=== PATIENT | female | born 1980 | race Hispanic/Latino ===

== ENCOUNTER 2016-09-27 00:39 | Inpatient (IN) | payer OTHER ==
[2016-09-27 02:50] LABS: Anion Gap 19 mmol/L; Blood Urea Nitrogen 15 mg/dL (7-17); Calcium 8.9 mg/dL (8.4-10.2); Carbon Dioxide 26 mmol/L (22-30); Chloride 94.7 mmol/L (98-107); Glucose 141 mg/dL (65-100); Potassium 4.1 mmol/L (3.6-5.0); Sodium 136 mmol/L (137-145)
[2016-09-27 03:09] LABS: Basophils % (Auto) 0.4 % (0.0-1.8); Eosinophils % (Auto) 1.4 % (0.0-4.3); Hematocrit 29.2 % (30.3-42.9); Mean Corpuscular HGB Conc 31 % (30-34); Mean Corpuscular Volume 79 fl (79-97); Platelet Count 206 K/mm3 (140-440); Red Blood Count 3.71 M/mm3 (3.65-5.03); White Blood Count 9.8 K/mm3 (4.5-11.0)
[2016-09-27 03:15] LABS: Mean Corpuscular Hemoglobin 24 pg (28-32); Red Cell Distribution Width 22.1 % (13.2-15.2)
[2016-09-27 04:50] LABS: INR 1.15 (0.87-1.13)
[2016-09-27 04:51] LABS: Partial Thromboplastin Time 28.7 Sec. (24.2-36.6)
--- NOTE | 2016-09-27 07:46 | XRay Report ---
AP CHEST: HISTORY: Shortness of breath No comparison. Mild cardiomegaly and pulmonary venous congestion are identified. Trace pleural effusions could be present. Otherwise, the lungs are clear. No pneumonia or pneumothorax is appreciated. The bony structures are unremarkable. IMPRESSION: Correlate for mild CHF.
--- NOTE | 2016-09-27 08:14 | Emergency Department Report ---
ED General Adult HPI - General Chief complaint: Dyspnea/Respdistress Stated complaint: RT LEG PAIN Time Seen by Provider: 09/27/16 08:12 Source: patient Mode of arrival: Wheelchair Limitations: No Limitations - History of Present Illness Initial comments: Patient states that she has run out of her morphine which she is on maintenance for for chronic pain. She doesn't have any explanation for this nor has she contacted her primary care physician. She states that her pain management is per a primary care physician. She complains of nausea vomiting and diarrhea. She was here on 09/14/2016 with similar complaints. She did not follow-up with the GI doctor. She's had no recent fever or chills. She has not vomited since I've been here in the emergency department nor have I noted any significant diarrhea. Patient did state that she went to the bathroom once this a.m. She had a CT on 09/14/2016 which was consistent with gastroenteritis. I do not believe she had any C. difficile study at that time. -: Gradual, week(s) Location: abdomen Quality: other (cramping) Consistency: intermittent Improves with: none Worsens with: none Associated Symptoms: denies other symptoms Treatments Prior to Arrival: none - Related Data Allergies Allergy/AdvReac Type Severity Reaction Status Date / Time milk Allergy Diarrhea Verified 09/27/16 02:08 ED Review of Systems ROS: Stated complaint: RT LEG PAIN Other details as noted in HPI Constitutional: denies: chills, fever Eyes: denies: eye pain, eye discharge, vision change ENT: denies: ear pain, throat pain Respiratory: denies: cough, shortness of breath, wheezing Cardiovascular: denies: chest pain, palpitations Endocrine: no symptoms reported Gastrointestinal: abdominal pain, nausea, vomiting, diarrhea Genitourinary: denies: urgency, dysuria, discharge Musculoskeletal: denies: back pain, joint swelling, arthralgia Skin: denies: rash, lesions Neurological: denies: headache, weakness, paresthesias Psychiatric: denies: anxiety, depression Hematological/Lymphatic: denies: easy bleeding, easy bruising ED Past Medical Hx - Past Medical History Previous Medical History?: Yes Additional medical history: hypothyroidism - Surgical History Past Surgical History?: Yes Additional Surgical History: x2 - Social History Smoking Status: Never Smoker Substance Use Type: None ED Physical Exam - General Limitations: No Limitations General appearance: alert, in no apparent distress - Head Head exam: Present: atraumatic, normocephalic - Eye Eye exam: Present: normal appearance, PERRL, EOMI. Absent: scleral icterus - ENT ENT exam: Present: mucous membranes moist - Neck Neck exam: Present: normal inspection - Respiratory Respiratory exam: Present: normal lung sounds bilaterally. Absent: respiratory distress - Cardiovascular Cardiovascular Exam: Present: regular rate, normal rhythm. Absent: systolic murmur, diastolic murmur, rubs, gallop - GI/Abdominal GI/Abdominal exam: Present: soft, normal bowel sounds. Absent: distended, tenderness, guarding, rebound, rigid - Extremities Exam Extremities exam: Present: normal inspection - Back Exam Back exam: Present: normal inspection - Neurological Exam Neurological exam: Present: alert, oriented X3, CN II-XII intact. Absent: motor sensory deficit - Psychiatric Psychiatric exam: Present: normal affect, normal mood - Skin Skin exam: Present: warm, dry, intact, normal color. Absent: rash ED Course Vital Signs 09/27/16 09/27/16 09/27/16 01:58 02:29 02:30 Temperature 97.6 F Pulse Rate 108 H Respiratory 22 37 H 25 H Rate Blood Pressure 136/88 137/75 137/75 O2 Sat by Pulse 90 95 95 Oximetry 09/27/16 09/27/16 09/27/16 02:40 02:50 03:00 Temperature Pulse Rate 99 H 105 H 100 H Respiratory 21 16 19 Rate Blood Pressure 137/75 137/75 O2 Sat by Pulse 98 94 98 Oximetry 09/27/16 09/27/16 09/27/16 03:10 03:20 03:30 Temperature Pulse Rate 99 H 96 H 100 H Respiratory 18 20 12 Rate Blood Pressure 137/75 137/75 137/75 O2 Sat by Pulse 97 96 96 Oximetry 09/27/16 09/27/16 09/27/16 03:40 03:50 04:00 Temperature Pulse Rate 100 H 101 H 100 H Respiratory 20 23 19 Rate Blood Pressure 137/75 137/75 137/75 O2 Sat by Pulse 98 95 98 Oximetry 09/27/16 09/27/16 09/27/16 04:10 04:20 04:30 Temperature Pulse Rate 104 H 102 H 98 H Respiratory 16 13 21 Rate Blood Pressure 137/75 137/75 137/75 O2 Sat by Pulse 91 94 95 Oximetry 09/27/16 09/27/16 09/27/16 04:40 04:50 05:00 Temperature Pulse Rate 103 H Respiratory 18 Rate Blood Pressure 137/75 137/75 137/75 O2 Sat by Pulse 97 91 95 Oximetry 09/27/16 09/27/16 09/27/16 05:10 05:20 05:30 Temperature Pulse Rate Respiratory Rate Blood Pressure 137/75 137/75 137/75 O2 Sat by Pulse 97 96 94 Oximetry 09/27/16 09/27/16 09/27/16 05:40 05:50 06:00 Temperature Pulse Rate Respiratory Rate Blood Pressure 137/75 137/75 137/75 O2 Sat by Pulse 92 94 88 Oximetry 09/27/16 09/27/16 09/27/16 06:10 06:20 06:30 Temperature Pulse Rate Respiratory Rate Blood Pressure 137/75 137/75 137/75 O2 Sat by Pulse 94 93 96 Oximetry 09/27/16 09/27/16 09/27/16 06:40 06:50 07:00 Temperature Pulse Rate Respiratory Rate Blood Pressure 137/75 137/75 137/75 O2 Sat by Pulse 96 88 83 L Oximetry 09/27/16 09/27/16 09/27/16 07:10 07:20 07:30 Temperature Pulse Rate Respiratory Rate Blood Pressure 137/75 137/75 137/75 O2 Sat by Pulse 87 86 85 Oximetry - Reevaluation(s) Reevaluation #1: I have explained to the patient that we cannot renew her chronic morphine maintenance. That is the [place] of her primary care physician. I can't give her some Percocet. I will empirically start her on Flagyl and also prescribed Zofran. If she can produce a stool specimen we will send it for study. Otherwise follow-up with GI physician and her primary care is indicated. 09/27/16 08:42 ED Medical Decision Making - Lab Data Result diagrams: 09/27/16 02:18 09/27/16 02:18 Laboratory Results - last 24 hr 09/27/16 09/27/16 09/27/16 02:18 02:18 04:07 WBC 9.8 RBC 3.71 Hgb 9.0 L Hct 29.2 L MCV 79 MCH 24 L MCHC 31 RDW 22.1 H Plt Count 206 Lymph % (Auto) 15.3 [place] % (Auto) 5.9 Eos % (Auto) 1.4 Baso % (Auto) 0.4 Lymph # 1.5 [place] # 0.6 Eos # 0.1 Baso # 0.0 Seg Neutrophils % 77.0 H Seg Neutrophils # 7.6 PT 15.3 H INR 1.15 H APTT 28.7 Sodium 136 L Potassium 4.1 Chloride 94.7 L Carbon Dioxide 26 Anion Gap 19 BUN 15 Creatinine 1.0 Estimated GFR > 60 BUN/Creatinine Ratio 15.00 Glucose 141 H Calcium 8.9 Troponin T < 0.010 TSH Free T4 HCG, Qual 09/27/16 09/27/16 04:07 04:07 WBC RBC Hgb Hct MCV MCH MCHC RDW Plt Count Lymph % (Auto) [place] % (Auto) Eos % (Auto) Baso % (Auto) Lymph # [place] # Eos # Baso # Seg Neutrophils % Seg Neutrophils # PT INR APTT Sodium Potassium Chloride Carbon Dioxide Anion Gap BUN Creatinine Estimated GFR BUN/Creatinine Ratio Glucose Calcium Troponin T TSH 25.680 H Free T4 0.80 HCG, Qual Negative Critical care attestation.: If time is entered above; I have spent that time in minutes in the direct care of this critically ill patient, excluding procedure time. ED Disposition Does the pt Need Aspirin: No Condition: Stable Additional Instructions: Your chronic morphine must be prescribed by her primary care physician. Seen him for that. I Prescribed some Percocet and Zofran at this point. I am going to recommend that he take Flagyl for your diarrhea. If you can't give us a stool sample we will send appropriate studies. Follow-up with a GI specialist. See referral. Time of Disposition: 08:45
[2016-09-27] MEDS ORDERED: MORPHINE IV ONE (08:17)
[2016-09-27] MEDS ORDERED: HEPARIN 10,000 UNITS/10 ML IV ONE (08:28)
--- NOTE | 2016-09-27 09:18 | Emergency Department Report ---
ED General Adult HPI - General Chief complaint: Dyspnea/Respdistress Stated complaint: RT LEG PAIN Time Seen by Provider: 09/27/16 08:12 Source: patient Mode of arrival: Wheelchair Limitations: No Limitations - History of Present Illness Initial comments: Patient states that she was previously on anticoagulation for 6 months for a DVT of her right leg. She states that she was followed by [facility] who discontinued the medication after 6 months. This is not been verified. She denies a previous history of pulmonary embolism. She states that over the past few days she actually felt movement of a clot or pain from her knee to her groin area. She is a poor historian. She states that she has chest pain that is a "shortness of breath". She cannot describe the chest pain. She doesn't state that it is pleuritic. She just states the chest pain is a shortness of breath for the last 2 days. She cannot even localize the pain. In any case he has had dyspnea for the past 2 days. She presented with a pulse oximetry of 88% . She states that the dyspnea does get worse on exertion. -: Gradual, days(s) Location: right, lower extremity Radiation: non-radiation Severity scale (0 -10): 10 Quality: aching Consistency: intermittent Improves with: none Worsens with: none Associated Symptoms: chest pain, shortness of breath Treatments Prior to Arrival: none - Related Data Home Medications Medication Instructions Recorded Confirmed Last Taken Multivitamin Tab [Multiple Vitamin 1 each PO QDAY 09/27/16 09/27/16 09/26/16 TAB (Theragran)] Allergies Allergy/AdvReac Type Severity Reaction Status Date / Time milk Allergy Diarrhea Verified 09/27/16 02:08 ED Review of Systems ROS: Stated complaint: RT LEG PAIN Other details as noted in HPI Constitutional: denies: chills, fever Eyes: denies: eye pain, eye discharge, vision change ENT: denies: ear pain, throat pain Respiratory: denies: cough, shortness of breath, wheezing Cardiovascular: chest pain. denies: palpitations Endocrine: no symptoms reported Gastrointestinal: denies: abdominal pain, nausea, diarrhea Genitourinary: denies: urgency, dysuria, discharge Musculoskeletal: as per HPI. denies: back pain, joint swelling, arthralgia Skin: denies: rash, lesions Neurological: denies: headache, weakness, paresthesias Psychiatric: denies: anxiety, depression Hematological/Lymphatic: denies: easy bleeding, easy bruising ED Past Medical Hx - Past Medical History Previous Medical History?: Yes Additional medical history: hypothyroidism - Surgical History Past Surgical History?: Yes Additional Surgical History: x2 - Social History Smoking Status: Never Smoker Substance Use Type: None - Medications Home Medications: Home Medications Medication Instructions Recorded Confirmed Last Taken Type Multivitamin Tab [Multiple Vitamin 1 each PO QDAY 09/27/16 09/27/16 09/26/16 History TAB (Theragran)] ED Physical Exam - General Limitations: Physical Limitation General appearance: alert, in no apparent distress, obese - Head Head exam: Present: atraumatic, normocephalic - Eye Eye exam: Present: normal appearance. Absent: scleral icterus - ENT ENT exam: Present: normal exam, mucous membranes moist - Neck Neck exam: Present: normal inspection. Absent: tenderness (morbid obesity), meningismus - Respiratory Respiratory exam: Present: normal lung sounds bilaterally. Absent: respiratory distress - Cardiovascular Cardiovascular Exam: Present: regular rate, normal rhythm. Absent: systolic murmur, diastolic murmur, rubs, gallop - GI/Abdominal GI/Abdominal exam: Present: soft, normal bowel sounds. Absent: distended, tenderness, guarding, rebound, rigid - Extremities Exam Extremities exam: Present: other (. It is a bit erythematous. Neurovascular exam is intact. Patient is seated in a chair.) - Back Exam Back exam: Present: normal inspection - Neurological Exam Neurological exam: Present: alert, oriented X3, CN II-XII intact (as testable). Absent: motor sensory deficit - Psychiatric Psychiatric exam: Present: normal affect, normal mood - Skin Skin exam: Present: warm, dry, intact, normal color. Absent: rash ED Course Vital Signs 09/27/16 09/27/16 09/27/16 01:58 02:29 02:30 Temperature 97.6 F Pulse Rate 108 H Respiratory 22 37 H 25 H Rate Blood Pressure 136/88 137/75 137/75 O2 Sat by Pulse 90 95 95 Oximetry 09/27/16 09/27/16 09/27/16 02:40 02:50 03:00 Temperature Pulse Rate 99 H 105 H 100 H Respiratory 21 16 19 Rate Blood Pressure 137/75 137/75 O2 Sat by Pulse 98 94 98 Oximetry 09/27/16 09/27/16 09/27/16 03:10 03:20 03:30 Temperature Pulse Rate 99 H 96 H 100 H Respiratory 18 20 12 Rate Blood Pressure 137/75 137/75 137/75 O2 Sat by Pulse 97 96 96 Oximetry 09/27/16 09/27/16 09/27/16 03:40 03:50 04:00 Temperature Pulse Rate 100 H 101 H 100 H Respiratory 20 23 19 Rate Blood Pressure 137/75 137/75 137/75 O2 Sat by Pulse 98 95 98 Oximetry 09/27/16 09/27/16 09/27/16 04:10 04:20 04:30 Temperature Pulse Rate 104 H 102 H 98 H Respiratory 16 13 21 Rate Blood Pressure 137/75 137/75 137/75 O2 Sat by Pulse 91 94 95 Oximetry 09/27/16 09/27/16 09/27/16 04:40 04:50 05:00 Temperature Pulse Rate 103 H Respiratory 18 Rate Blood Pressure 137/75 137/75 137/75 O2 Sat by Pulse 97 91 95 Oximetry 09/27/16 09/27/16 09/27/16 05:10 05:20 05:30 Temperature Pulse Rate Respiratory Rate Blood Pressure 137/75 137/75 137/75 O2 Sat by Pulse 97 96 94 Oximetry 09/27/16 09/27/16 09/27/16 05:40 05:50 06:00 Temperature Pulse Rate Respiratory Rate Blood Pressure 137/75 137/75 137/75 O2 Sat by Pulse 92 94 88 Oximetry 09/27/16 09/27/16 09/27/16 06:10 06:20 06:30 Temperature Pulse Rate Respiratory Rate Blood Pressure 137/75 137/75 137/75 O2 Sat by Pulse 94 93 96 Oximetry 09/27/16 09/27/16 09/27/16 06:40 06:50 07:00 Temperature Pulse Rate Respiratory Rate Blood Pressure 137/75 137/75 137/75 O2 Sat by Pulse 96 88 83 L Oximetry 09/27/16 09/27/16 09/27/16 07:10 07:20 07:30 Temperature Pulse Rate Respiratory Rate Blood Pressure 137/75 137/75 137/75 O2 Sat by Pulse 87 86 85 Oximetry - Reevaluation(s) Reevaluation #1: I spoke with the pharmacist concerning applying a morbid obesity protocol on this patient's heparin. They stated that they would make the necessary modifications. I gave her the top standard bolus of 10,000 empirically as it appeared quite evident that she was suffering from VTE. A bedside ultrasound did show an acute clot in the right groin but the study was limited secondary to the body habitus of the patient. We will attempt to get a CTA as the patient is theoretically below the gantry limit. I'm not certain if this will be accomplished. Patient is admitted to the hospitalist service for further care and evaluation. Vascular consult as indicated. 09/27/16 09:16 Reevaluation #2: Consult to vascular will be placed. 09/27/16 10:44 ED Medical Decision Making - Lab Data Result diagrams: 09/27/16 02:18 09/27/16 02:18 Laboratory Results - last 24 hr 09/27/16 09/27/16 09/27/16 02:18 02:18 04:07 WBC 9.8 RBC 3.71 Hgb 9.0 L Hct 29.2 L MCV 79 MCH 24 L MCHC 31 RDW 22.1 H Plt Count 206 Lymph % (Auto) 15.3 [place] % (Auto) 5.9 Eos % (Auto) 1.4 Baso % (Auto) 0.4 Lymph # 1.5 [place] # 0.6 Eos # 0.1 Baso # 0.0 Seg Neutrophils % 77.0 H Seg Neutrophils # 7.6 PT 15.3 H INR 1.15 H APTT 28.7 Sodium 136 L Potassium 4.1 Chloride 94.7 L Carbon Dioxide 26 Anion Gap 19 BUN 15 Creatinine 1.0 Estimated GFR > 60 BUN/Creatinine Ratio 15.00 Glucose 141 H Calcium 8.9 Troponin T < 0.010 TSH Free T4 HCG, Qual 09/27/16 09/27/16 04:07 04:07 WBC RBC Hgb Hct MCV MCH MCHC RDW Plt Count Lymph % (Auto) [place] % (Auto) Eos % (Auto) Baso % (Auto) Lymph # [place] # Eos # Baso # Seg Neutrophils % Seg Neutrophils # PT INR APTT Sodium Potassium Chloride Carbon Dioxide Anion Gap BUN Creatinine Estimated GFR BUN/Creatinine Ratio Glucose Calcium Troponin T TSH 25.680 H Free T4 0.80 HCG, Qual Negative - EKG Data -: EKG Interpreted by Me EKG shows normal: sinus rhythm Rate: normal - EKG Data Interpretation: other (left axis deviation) - Radiology Data interpreted by me: Chest x-ray is limited by technique and habitus. Radiologist says consider CHF. I don't think this is definitive for that at all. Further testing is pending on CTA and laboratory study. Bilateral PE right mainstem somewhat occlusive to the lower lobe vessels per Dr. Edwards. Critical Care Time: Yes Critical care time in (mins) excluding proc time.: 60 Critical care attestation.: If time is entered above; I have spent that time in minutes in the direct care of this critically ill patient, excluding procedure time. ED Disposition Clinical Impression: Venous thromboembolism, Bilateral pulmonary embolism Right femoral vein DVT Qualifiers: Chronicity: acute Qualified Code(s): I82.411 - Acute embolism and thrombosis of right femoral vein Disposition: OP ADMIT IP TO THIS HOSP Is pt being admited?: Yes Does the pt Need Aspirin: No Condition: Stable Additional Instructions: Your chronic morphine must be prescribed by her primary care physician. Seen him for that. I Prescribed some Percocet and Zofran at this point. I am going to recommend that he take Flagyl for your diarrhea. If you can't give us a stool sample we will send appropriate studies. Follow-up with a GI specialist. See referral. Referrals: PRIMARY CAREMD [Primary Care Provider] - 3-5 Days Time of Disposition: 09:21
[2016-09-27] MEDS ORDERED: NACL ONE (09:22)
--- NOTE | 2016-09-27 09:22 | Admit Criteria Form ---
Admission Criteria Documentation: DEEP VENOUS THROMBOSIS OF LOWER EXTREMITIES Clinical Indications for Admission to Inpatient Care ( Place 'X' for any and all applicable criteria): Admission is indicated for ANY ONE of the following (1)(2)(3)(4): [ ]I. Documented extensive thrombosis (e.g., clot in vena cava or above iliofemoral bifurcation) [ ]II. Limb-threatening thrombosis (e.g., phlegmasia cerulea dolens) [ ]III. Active bleeding [ ]IV. Recent surgery (e.g., within 6 weeks) [ ]V. Active peptic ulcer disease [ ]. Thrombosis while on anticoagulation [ ]VII. [X ]VIII. Appropriate monitoring and therapy cannot be provided in home or outpatient setting [ ]IX. Thrombolysis (e.g., catheter-directed) or pharmaco mechanical thrombectomy needed (3) [ ]X. Vena cava filter placement planned (3) [ ]XI. Severely diminished cardiopulmonary reserve (e.g., pulmonary hypertension) [ ]XII. Severe renal failure (e.g., GFR less than 30 mL/min/1.73m2 (0.5 mL/sec /1.73m2)) [ ]XIII. Known clotting abnormality or deficiency (antithrombin III, protein C , or protein S) [ ]XIV. History of heparin-induced thrombocytopenia [ ]XV . Personal or family history of bleeding tendency or familial bleeding disorder that requires inpatient admission rather than observation care (Also use Deep Venous Thrombosis of Lower Extremities: Observation Care as appropriate) because of ANY ONE of the following: [ ]a) Significant allergic, autoimmune (thrombocytopenia), or coagulopathic reaction occurs in response to anticoagulation [ ]b) Other significant finding or clinical condition judged not to be within the scope of observation care Extended stay beyond goal length of stay may be needed for(1)(19): [ ]a) Hemorrhage or recent surgery(3) [ ]b) Inadequate oral anticoagulation [ ]c) Recurrent thromboembolism(3) [ ]d) Heparin-induced thrombocytopenia(14) The original [facility] content created by [facility] has been revised. The portions of the content which have been revised are identified through the use of italic text or in bold, and [facility] has neither reviewed nor approved the modified material. All other unmodified content is copyright [facility]. Please see references footnoted in the original [facility] edition 2016 Admission Criteria Met: Yes
--- NOTE | 2016-09-27 09:36 | History and Physical Report ---
<ZIGGY GOLDSTEIN - Last Filed: 09/27/16 12:14> History of Present Illness Date of examination: 09/27/16 Date of admission: 09/27/2016 Chief complaint: shortness of breath and right leg pain History of present illness: Patient is a 36 -year-old female with a past medical history hypothyroidism and left leg DVT was on anticoagulant 6 months who presents with a two days history of shortness of breath, right leg pain and right-sided chest pain. The symptoms began two days prior to admission, while she was at work, where worsening of her dyspnea and pain prompted her to come to the emergency room. There, he was diagnosed with pneumonia and placed on Levaquin 500 mg daily and Benzonatate 200 mg TID, which he has been taking for two days with only slight improvement. The right-sided pain is located midway down her ribcage, below the axilla. This pain is sharp, about 10/10 in severity, and worsens with movement and cough. Pressing on the chest does not recreate the pain. She feels that the pain has improved by morphine that she received in the Emergency room. The dyspnea has been severe, and it is difficult for her to walk more than across a room. She states that she feels as though there is a rattling in her chest. At baseline, she experiences dyspnea on exertion and has no history of COPD or other respiratory problem. she denies smoking, using drugs. She denies a previous history of pulmonary embolism. Patient reported that she has had left leg DVT 2 years ago and she was on anticoagulant for 6 months. She was advised by her [facility] to stop the anticoagulant. Past History Past Medical History: hypothyroidism, other (left leg DVT) Past Surgical History: No surgical history Social history: lives with family Family history: CAD, diabetes, hypertension Medications and Allergies Allergies Allergy/AdvReac Type Severity Reaction Status Date / Time milk Allergy Diarrhea Verified 09/27/16 02:08 Home Medications Medication Instructions Recorded Confirmed Last Taken Type Multivitamin Tab [Multiple Vitamin 1 each PO QDAY 09/27/16 09/27/16 09/26/16 History TAB (Theragran)] Active Meds: Active Medications Acetaminophen (Tylenol) 650 mg PO Q4H PRN PRN Reason: Pain MILD(1-3)/Fever >100.5/MORFIN Bisacodyl (Dulcolax) 10 mg GA QDAY PRN PRN Reason: Constipation unrelieved by MOM Heparin Sodium/Sodium Chloride (Heparin/ 0.45% Nacl-25,000 Unit/500 Ml) 25,000 unit in 500 mls @ 30 mls/hr IV TITR RADHA; 1,500 UNITS/HR PRN Reason: Protocol Magnesium Hydroxide (Milk Of Magnesia) 30 ml PO Q4H PRN PRN Reason: Constipation Morphine Sulfate (Morphine) 4 mg IV Q4H PRN PRN Reason: Pain , Severe (7-10) Ondansetron HCl (Zofran) 4 mg IV Q8H PRN PRN Reason: N/V unrelieved by Reglan Review of Systems Constitutional: poor appetite, no weight loss, no weight gain, no fever Ears, nose, mouth and throat: no ear pain, no ear discharge, no tinnitis Breasts: no change in shape, no swelling Cardiovascular: chest pain (right side ), shortness of breath, dyspnea on exertion, no edema, no syncope, no lightheadedness Respiratory: shortness of breath, dyspnea on exertion, no cough, no cough with sputum, no excessive sputum, no congestion, no pleurisy Gastrointestinal: no vomiting, no diarrhea, no constipation Genitourinary Female: no dysmenorrhea, no pelvic pain, no flank pain Menstruation: no currently menstrual, no premenarcheal, no post hysterectomy Rectal: no pain, no incontinence, no bleeding Integumentary: no rash, no pruritis, no redness Neurological: no paralysis, no weakness, no parathesias Psychiatric: no anxiety, no memory loss, no change in sleep habits, no sleep disturbances Endocrine: no cold intolerance, no heat intolerance, no polyphagia, no excessive thirst Hematologic/Lymphatic: no easy bruising, no easy bleeding Allergic/Immunologic: no urticaria, no allergic rhinitis, no wheezing Exam - Constitutional Vitals: Temp Pulse Resp BP Pulse Ox 97.6 F 103 H 18 137/75 85 09/27/16 01:58 09/27/16 04:40 09/27/16 04:40 09/27/16 07:30 09/27/16 07:30 General appearance: Present: mild distress, other (On 2LNC, SPO2 >92%) - EENT Eyes: Present: PERRL ENT: hearing intact - Neck Neck: Present: supple - Respiratory Respiratory effort: labored (mild), other (shortness of breath) Respiratory: bilateral: diminished - Cardiovascular Rhythm: regular - Extremities Extremity abnormal: edema (Right leg ) Peripheral Pulses: within normal limits - Abdominal General gastrointestinal: Present: soft, non-tender - Rectal Rectal Exam: deferred - Integumentary Integumentary: Present: clear, warm, dry - Musculoskeletal Musculoskeletal: gait normal, strength equal bilaterally - Neurologic Neurologic: CNII-XII intact - Allied Health Allied health notes reviewed: nursing Results - Labs CBC & Chem 7: 09/27/16 02:18 09/27/16 02:18 Labs: Laboratory Last Values WBC 9.8 K/mm3 (4.5-11.0) 09/27/16 02:18 RBC 3.71 M/mm3 (3.65-5.03) 09/27/16 02:18 Hgb 9.0 gm/dl (10.1-14.3) L 09/27/16 02:18 Hct 29.2 % (30.3-42.9) L 09/27/16 02:18 MCV 79 fl (79-97) 09/27/16 02:18 MCH 24 pg (28-32) L 09/27/16 02:18 MCHC 31 % (30-34) 09/27/16 02:18 RDW 22.1 % (13.2-15.2) H 09/27/16 02:18 Plt Count 206 K/mm3 (140-440) 09/27/16 02:18 Lymph % (Auto) 15.3 % (13.4-35.0) 09/27/16 02:18 Clinton % (Auto) 5.9 % (0.0-7.3) 09/27/16 02:18 Eos % (Auto) 1.4 % (0.0-4.3) 09/27/16 02:18 Baso % (Auto) 0.4 % (0.0-1.8) 09/27/16 02:18 Lymph # 1.5 K/mm3 (1.2-5.4) 09/27/16 02:18 Clinton # 0.6 K/mm3 (0.0-0.8) 09/27/16 02:18 Eos # 0.1 K/mm3 (0.0-0.4) 09/27/16 02:18 Baso # 0.0 K/mm3 (0.0-0.1) 09/27/16 02:18 Seg Neutrophils % 77.0 % (40.0-70.0) H 09/27/16 02:18 Seg Neutrophils # 7.6 K/mm3 (1.8-7.7) 09/27/16 02:18 PT 15.3 Sec. (12.2-14.9) H 09/27/16 04:07 INR 1.15 (0.87-1.13) H 09/27/16 04:07 APTT 28.7 Sec. (24.2-36.6) 09/27/16 04:07 Sodium 136 mmol/L (137-145) L 09/27/16 02:18 Potassium 4.1 mmol/L (3.6-5.0) 09/27/16 02:18 Chloride 94.7 mmol/L (98-107) L 09/27/16 02:18 Carbon Dioxide 26 mmol/L (22-30) 09/27/16 02:18 Anion Gap 19 mmol/L 09/27/16 02:18 BUN 15 mg/dL (7-17) 09/27/16 02:18 Creatinine 1.0 mg/dL (0.7-1.2) 09/27/16 02:18 Estimated GFR > 60 ml/min 09/27/16 02:18 BUN/Creatinine Ratio 15.00 % 09/27/16 02:18 Glucose 141 mg/dL (65-100) H 09/27/16 02:18 Calcium 8.9 mg/dL (8.4-10.2) 09/27/16 02:18 Troponin T < 0.010 ng/mL (0.00-0.029) 09/27/16 02:18 TSH 25.680 mlU/mL (0.270-4.200) H 09/27/16 04:07 Free T4 0.80 ng/dL (0.76-1.46) 09/27/16 04:07 HCG, Qual Negative (Negative) 09/27/16 04:07 - Imaging and Cardiology Chest x-ray: image reviewed (mild CHF) CT scan - chest: image reviewed (positive for pulmonary embolus. ) Assessment and Plan Assessment and plan: ASSESSMENT/PLAN Pulmonary embolism we will admit to Telemetry floor for continues hall monitor CTA shows pulmonary embolus. Chest -xray shows mild CHF but might be reactive from the PE Heparin protocol initiated and patient on heaprin drip Closely monitor PT,PTT 2. Right leg DVT Awaiting on findings of Doppler VL bilateral Patient started on standard heparin drip warm compresses to the affected leg 3.Mild CHF Chest -xray shows mild CHF but might be reactive from the PE 4. Hypothyroidism We will start on Synthroid <KISHA OWENS - Last Filed: 09/27/16 17:03> History of Present Illness Date of admission: 09/27/16 09:33 Medications and Allergies Active Meds: Active Medications Acetaminophen (Tylenol) 650 mg PO Q4H PRN PRN Reason: Pain MILD(1-3)/Fever >100.5/MORFIN Bisacodyl (Dulcolax) 10 mg GA QDAY PRN PRN Reason: Constipation unrelieved by MOM Heparin Sodium/Sodium Chloride (Heparin/ 0.45% Nacl-25,000 Unit/500 Ml) 25,000 unit in 500 mls @ 30 mls/hr IV TITR RADHA; 1,500 UNITS/HR PRN Reason: Protocol Last Admin: 09/27/16 10:17 Dose: 1,500 units/hr, 30 mls/hr Magnesium Hydroxide (Milk Of Magnesia) 30 ml PO Q4H PRN PRN Reason: Constipation Morphine Sulfate (Morphine) 4 mg IV Q4H PRN PRN Reason: Pain , Severe (7-10) Ondansetron HCl (Zofran) 4 mg IV Q8H PRN PRN Reason: Nausea And Vomiting Exam - Constitutional Vitals: Temp Pulse Resp BP Pulse Ox 97.6 F 95 H 17 147/78 96 09/27/16 01:58 09/27/16 15:30 09/27/16 11:01 09/27/16 15:30 09/27/16 15:30 Results - Labs CBC & Chem 7: 09/27/16 02:18 09/27/16 02:18 Labs: Laboratory Last Values WBC 9.8 K/mm3 (4.5-11.0) 09/27/16 02:18 RBC 3.71 M/mm3 (3.65-5.03) 09/27/16 02:18 Hgb 9.0 gm/dl (10.1-14.3) L 09/27/16 02:18 Hct 29.2 % (30.3-42.9) L 09/27/16 02:18 MCV 79 fl (79-97) 09/27/16 02:18 MCH 24 pg (28-32) L 09/27/16 02:18 MCHC 31 % (30-34) 09/27/16 02:18 RDW 22.1 % (13.2-15.2) H 09/27/16 02:18 Plt Count 206 K/mm3 (140-440) 09/27/16 02:18 Lymph % (Auto) 15.3 % (13.4-35.0) 09/27/16 02:18 Clinton % (Auto) 5.9 % (0.0-7.3) 09/27/16 02:18 Eos % (Auto) 1.4 % (0.0-4.3) 09/27/16 02:18 Baso % (Auto) 0.4 % (0.0-1.8) 09/27/16 02:18 Lymph # 1.5 K/mm3 (1.2-5.4) 09/27/16 02:18 Clinton # 0.6 K/mm3 (0.0-0.8) 09/27/16 02:18 Eos # 0.1 K/mm3 (0.0-0.4) 09/27/16 02:18 Baso # 0.0 K/mm3 (0.0-0.1) 09/27/16 02:18 Seg Neutrophils % 77.0 % (40.0-70.0) H 09/27/16 02:18 Seg Neutrophils # 7.6 K/mm3 (1.8-7.7) 09/27/16 02:18 PT 15.3 Sec. (12.2-14.9) H 09/27/16 04:07 INR 1.15 (0.87-1.13) H 09/27/16 04:07 APTT 28.7 Sec. (24.2-36.6) 09/27/16 04:07 Heparin Anti-Xa Level 0.20 U.I./ml (0.3-0.7) L 09/27/16 16:18 Sodium 136 mmol/L (137-145) L 09/27/16 02:18 Potassium 4.1 mmol/L (3.6-5.0) 09/27/16 02:18 Chloride 94.7 mmol/L (98-107) L 09/27/16 02:18 Carbon Dioxide 26 mmol/L (22-30) 09/27/16 02:18 Anion Gap 19 mmol/L 09/27/16 02:18 BUN 15 mg/dL (7-17) 09/27/16 02:18 Creatinine 1.0 mg/dL (0.7-1.2) 09/27/16 02:18 Estimated GFR > 60 ml/min 09/27/16 02:18 BUN/Creatinine Ratio 15.00 % 09/27/16 02:18 Glucose 141 mg/dL (65-100) H 09/27/16 02:18 Calcium 8.9 mg/dL (8.4-10.2) 09/27/16 02:18 Troponin T < 0.010 ng/mL (0.00-0.029) 09/27/16 02:18 TSH 25.680 mlU/mL (0.270-4.200) H 09/27/16 04:07 Free T4 0.80 ng/dL (0.76-1.46) 09/27/16 04:07 HCG, Qual Negative (Negative) 09/27/16 04:07 Assessment and Plan Assessment and plan: I saw and evaluated the patient. I agree with the findings and the plan of care as documented in the Nurse Practitioner's~note, with the following corrections and additions. Patient requiring thrombolysis, Vascular input appreciated. will check ECHO, change to ICU post thrombosis, obtain consultation from critical care. monitor labs and for any bleeding. She will benefit from secondary coagulopathy work up outpatient by Hematology The high probability of a clinically significant, sudden or life threatening deterioration of the [pulmonary, hematology] system(s) required my full and direct attention, intervention and personal management. The aggregate critical care time was [35] minutes. This time is in addition to time spent performing reported procedures but includes the following: [x] Data Review and interpretation [x] Patient assessment and monitoring of vital signs [x] Documentation [x] Medication orders and management Advance Directives: Yes Plan of care discussed with patient/family: Yes
[2016-09-27] MEDS ORDERED: DULCOLAX PR PRN (10:00)
[2016-09-27] MEDS ORDERED: ZOFRAN IV PRN (10:00)
[2016-09-27] MEDS ORDERED: HEPARIN/ 0.45% NACL-25,000 UNIT/500 ML 25,000 UNIT/500 ML BAG IV SCH (10:00)
[2016-09-27] MEDS ORDERED: TYLENOL PO PRN (10:00)
[2016-09-27] MEDS ORDERED: MILK OF MAGNESIA PO PRN (10:00)
--- NOTE | 2016-09-27 10:46 | Cat Scan Report ---
CTA CHEST: HISTORY: chest pain Technique: Helical CT following IV contrast. Pulmonary embolus protocol. Sagittal and coronal reformatted images. Rotational MIP images. Findings: Contrast bolus is severely limited. However, bilateral pulmonary emboli are suspected. A large embolus in the distal right main pulmonary artery extending to the right lower lobe is identified. Filling defects are also suspected in the left lower lobe second order branches. No saddle pulmonary embolus. There is mild dilatation of the right ventricle. Heart size is normal overall. No pericardial effusion. The thyroid gland, tracheobronchial tree, esophagus, aorta, lung urbina and bony thorax are unremarkable. Impression: Positive for pulmonary embolus as described. Please note this examination is limited secondary to poor bolus timing. Lungs clear. These findings were discussed with Dr. Pearson in the emergency department at 1039 hrs.
--- NOTE | 2016-09-27 15:27 | Consultation ---
History of Present Illness - Reason for Consult Consult date: 09/27/16 Bilat PE Requesting physician: LINA MOSQUEDA - History of Present Illness This patient is a 36-year-old female that has been admitted via the emergency room due to a bilateral pulmonary embolus, and a right lower extremity DVT. She was in her normal state of health until approximately 2 days ago when she developed a sudden onset of shortness of breath with a nonproductive cough. This has progressively deteriorated. She subsequently complained of severe right thigh pain. She presents to the emergency room for further evaluation. A CT scan of the chest was ordered. This revealed bilateral pulmonary embolus with a large embolus in the distal right main pulmonary artery. Her room air sats were in the 80s. She required supplemental oxygen. A vascular surgery consult was requested to evaluate for possible thrombolysis. The patient denies any known trauma. She denies recent long distance travel. She works as a front desk manager for hotel. She states she has prolonged periods of standing or sitting. She has had a previous left lower extremity DVT approximately 2 years ago. She was on anticoagulation for approximately 6 months and then it was stopped. Past History Past Medical History: hypothyroidism (she portably does not have a period due to her thyroid abnormalities), other (left leg DVT 2 years ago) Past Surgical History: Social history: lives with family (2 male children), other (she works at the front desk agent of a hotel). denies: smoking Family history: CAD, diabetes, hypertension Medications and Allergies Allergies Allergy/AdvReac Type Severity Reaction Status Date / Time milk Allergy Diarrhea Verified 09/27/16 02:08 Home Medications Medication Instructions Recorded Confirmed Last Taken Type Multivitamin Tab [Multiple Vitamin 1 each PO QDAY 09/27/16 09/27/16 09/26/16 History TAB (Theragran)] Active Meds: Active Medications Acetaminophen (Tylenol) 650 mg PO Q4H PRN PRN Reason: Pain MILD(1-3)/Fever >100.5/MORFIN Bisacodyl (Dulcolax) 10 mg ND QDAY PRN PRN Reason: Constipation unrelieved by MOM Heparin Sodium/Sodium Chloride (Heparin/ 0.45% Nacl-25,000 Unit/500 Ml) 25,000 unit in 500 mls @ 30 mls/hr IV TITR RADHA; 1,500 UNITS/HR PRN Reason: Protocol Last Admin: 09/27/16 10:17 Dose: 1,500 units/hr, 30 mls/hr Magnesium Hydroxide (Milk Of Magnesia) 30 ml PO Q4H PRN PRN Reason: Constipation Morphine Sulfate (Morphine) 4 mg IV Q4H PRN PRN Reason: Pain , Severe (7-10) Ondansetron HCl (Zofran) 4 mg IV Q8H PRN PRN Reason: Nausea And Vomiting Review of Systems All systems: negative (specifically denies any recent known bleeding concerns, see history of present illness otherwise, all systems were reviewed and found to have no pertinent complaints) Exam - Constitutional Vitals: Temp Pulse Resp BP Pulse Ox 97.6 F 97 H 17 131/77 97 09/27/16 01:58 09/27/16 14:30 09/27/16 11:01 09/27/16 14:30 09/27/16 14:30 General appearance: Present: no acute distress, obese (morbidly obese) - EENT Eyes: Present: EOM intact ENT: hearing intact - Neck Neck: Present: supple - Respiratory Respiratory effort: other (patient has shallow breathing, she complains of shortness of breath, her pulse ox is reportedly in the 80s on room air) - Extremities Extremities: no ischemia, normal temperature Extremity abnormal: edema (bilateral lower extremity edema, right greater than left, bilateral lower extremity erythema) - Psychiatric Psychiatric: appropriate mood/affect, intact judgment & insight, cooperative - Neurologic Neurologic: no focal deficits Results - Labs CBC & Chem 7: 09/27/16 02:18 09/27/16 02:18 Assessment and Plan This patient was admitted via the emergency room due to bilateral pulmonary emboli with an extensive right lower extremity DVT. She previously had a left lower extremity DVT (2 years ago) for which she was on anticoagulation for 6 months. She is a 36-year-old female with bilateral pulmonary emboli requiring oxygen supplementation. She has an extensive DVT to her right lower extremity with pain. Recommend thrombolysis of the pulmonary embolus, with subsequent IVC filter placement and treatment of the symptomatic right lower ext dvt. R,B,and A to these procedures were discussed in great detail with the patient. She understands the risk (including bleeding) and agrees to proceed. This will be scheduled in the seed analysis laboratory assistant. - Patient Problems (1) Deep vein thrombosis (DVT) of right iliofemoral vein Current Visit: Yes Status: Acute (2) Bilateral pulmonary embolism Current Visit: Yes Status: Acute (3) Hypothyroidism Current Visit: Yes Status: Acute Qualifiers: Hypothyroidism type: H
[2016-09-27] MEDS ORDERED: MORPHINE IV PRN (17:14)
[2016-09-27] MEDS ORDERED: HEPARIN/NS 5000 UNIT/500ML(CATH LAB) 1,000 ML IR ONE (17:38)
[2016-09-27] MEDS ORDERED: ANCEF/STERILE WATER 2 GM/20 ML 2 GM/20 ML SYRINGE IV ONE (17:39)
[2016-09-27] MEDS ORDERED: WATER FOR INJ (PF) 20 ML ONE (17:43)
[2016-09-27] MEDS: VERSED ONE (17:54)
[2016-09-27 17:56] LABS: Basophils % (Auto) 0.4 % (0.0-1.8); Hematocrit 28.7 % (30.3-42.9); Hemoglobin 8.8 gm/dl (10.1-14.3); Mean Corpuscular HGB Conc 31 % (30-34); Mean Corpuscular Volume 80 fl (79-97); Platelet Count 201 K/mm3 (140-440); White Blood Count 9.1 K/mm3 (4.5-11.0)
[2016-09-27 17:56] LABS: INR 1.18 (0.87-1.13); Partial Thromboplastin Time 45.8 Sec. (24.2-36.6)
[2016-09-27] MEDS: XYLOCAINE 1%/ EPI 1:100,000 INFILTRATI ONE (17:56)
[2016-09-27] MEDS: SUBLIMAZE ONE (17:56)
[2016-09-27 17:57] LABS: Mean Corpuscular Hemoglobin 25 pg (28-32); Red Cell Distribution Width 22.1 % (13.2-15.2)
[2016-09-27] MEDS ORDERED: HEPARIN/ 0.45% NACL-25,000 UNIT/500 ML 25,000 UNIT/500 ML BAG SHEATH SCH ×2 (18:00)
[2016-09-27] MEDS ORDERED: CATHFLO 10 MG in NACL 0.9% 250ML 250 ML EKOSDLUMEN SCH (18:00)
[2016-09-27] MEDS ORDERED: CATHFLO 10 MG in NACL 0.9% 250ML 250 ML IV SCH (18:00)
[2016-09-27] MEDS ORDERED: NACL 0.9% 1000 ML 1,000 ML IV SCH (18:00)
[2016-09-27] MEDS ORDERED: NACL 0.9% 1000 ML 1,000 ML SHEATH SCH ×2 (18:00)
[2016-09-27] MEDS ORDERED: NACL 0.9% 1000 ML 1,000 ML EKOSCLUMEN SCH ×2 (18:00)
[2016-09-27] MEDS ORDERED: HEPARIN/ 0.45% NACL-25,000 UNIT/500 ML 50,000 UNIT/1,000 ML BAG ONE (18:01)
[2016-09-27] MEDS ORDERED: NACL 0.9% 1000 ML 2,000 ML ONE (18:02)
[2016-09-27 18:14] LABS: Anion Gap 23 mmol/L; BUN/Creatinine Ratio 16.66; Blood Urea Nitrogen 15 mg/dL (7-17); Calcium 8.7 mg/dL (8.4-10.2); Carbon Dioxide 24 mmol/L (22-30); Glucose 117 mg/dL (65-100); Potassium 4.1 mmol/L (3.6-5.0); Sodium 139 mmol/L (137-145)
[2016-09-27] MEDS: HEPARIN 10,000 UNITS/10 ML ONE ×2 (18:38→18:39)
[2016-09-27] MEDS: CATHFLO ONE ×2 (18:40→18:41)
--- NOTE | 2016-09-27 19:20 | Operative Report ---
Operative Report Operative Report: Date of Procedure: 09/27/2016 Pre-operative Diagnosis: Symptomatic Bilateral Pulmonary Artery Emboli Post-operative Diagnosis: Same Procedure(s): 1. Ultrasound-Guided Access Left Femoral Vein with 6 Hungarian 25 Cm Sheath 2. Ultrasound-Guided Access Left Femoral Vein with 6 Hungarian 25 Cm Sheath 3. Bilateral Pulmonary Arteriogram 4. Right Pulmonary Artery Thrombolysis with 106 x 12 cm EKOS Catheter 5. Left Pulmonary Artery Thrombolysis with 135 x 12 cm EKOS Catheter 6. Radiologic Supervision with Interpretation Surgeon: Peter Eduardo M.D. Elementary [employer] Teacher: None Anesthesia: Local and IV sedation EBL: Minimal Counts: Correct Complications: None Condition: Stable Findings: Near total occlusion of the right main pulmonary artery. Segmental occlusion of multiple branches of the left pulmonary artery. Specimen: None Indication: The patient is a 36-year-old female who presented to the emergency department for complaints of painful right lower showed a swelling. She was found to have a DVT in the right iliofemoral region but also had a CTA of her chest performed secondary to complaints of shortness of breath with ambulation. CTA revealed bilateral pulmonary emboli with evidence of right heart enlargement. Given the shortness of breath and evidence of right heart strain it was felt that she would benefit from thrombolysis of her pulmonary artery emboli. She was given the risk, benefits, and alternative procedures and consented to the procedure. Description of Procedure: The patient was brought to the laborer construction or leak gang and laid in supine position. After she was adequately sedated her left groin was prepped and draped in normal sterile fashion. Ultrasound was used to identify the left femoral vein in the overlying skin and soft tissue was anesthetized with lidocaine. An access needle was used to ultrasound guidance to access the vein and a 0.035 Bentson wire was advanced into the central venous system under fluoroscopy. The access needle was used again, with ultrasound guidance, to access the vein and additional 0.035 J-wire was advanced. A 6 Hungarian 25 cm sheaths were then placed over each wire by Seldinger technique. With the use of the Bentson wire and a 5 Hungarian JR4 catheter was able to cannulate the main pulmonary artery and then eventually the right pulmonary artery and performed an arteriogram which revealed no total occlusion of the right main pulmonary artery. The [place] wire was advanced into the lower lobe and the 106 x 12 cm EKOS catheter was placed into the pulmonary artery. The infusion wire was then inserted and I primed the coolant port with heparin and the drug port with TPA. I then used the 5 Hungarian JR4 and a Toothpickson wire to cannulate the main pulmonary artery and then advanced this into the left pulmonary artery. The position was confirmed with arteriogram. The wire was reinserted and the 135 x 12 cm EKOS catheter was advanced into the left pulmonary artery. Again primed the coolant port with heparin and the drug port with TPA. Sheaths and catheters were then secured with 0 silks. The catheters were then dressed sterilely. The patient tolerated the procedure well. All sponge, needle, and instrument counts were correct. The patient was taken to the recovery area in stable condition.
[2016-09-27] MEDS ORDERED: MORPHINE ONE (19:43)
[2016-09-27] MEDS: MORPHINE IV PRN (19:54)
[2016-09-27] MEDS ORDERED: NORCO 5/325 ONE (21:06)
[2016-09-27] MEDS: NORCO 5/325 PO PRN (21:13)
[2016-09-28 01:36] LABS: Albumin 3.9 g/dL (3.9-5); Albumin/Globulin Ratio 0.9 %; Bilirubin,Direct 0.2 mg/dL (0-0.2); Bilirubin,Indirect 0.8 mg/dL; Total Protein 8.1 g/dL (6.3-8.2)
[2016-09-28 02:09] LABS: Basophils % (Auto) 0.4 % (0.0-1.8); Hematocrit 27.7 % (30.3-42.9); Hemoglobin 8.7 gm/dl (10.1-14.3); Mean Corpuscular HGB Conc 32 % (30-34); Mean Corpuscular Volume 77 fl (79-97); Platelet Count 170 K/mm3 (140-440); Red Blood Count 3.62 M/mm3 (3.65-5.03); White Blood Count 9.9 K/mm3 (4.5-11.0)
[2016-09-28 02:12] LABS: Mean Corpuscular Hemoglobin 24 pg (28-32); Red Cell Distribution Width 22.1 % (13.2-15.2)
[2016-09-28] MEDS: MORPHINE IV PRN (05:31)
[2016-09-28 07:59] LABS: Basophils % (Auto) 0.5 % (0.0-1.8); Eosinophils % (Auto) 1.3 % (0.0-4.3); Hematocrit 26.4 % (30.3-42.9); Hemoglobin 8.3 gm/dl (10.1-14.3); Mean Corpuscular HGB Conc 31 % (30-34); Mean Corpuscular Volume 76 fl (79-97); Platelet Count 158 K/mm3 (140-440); Red Blood Count 3.46 M/mm3 (3.65-5.03); White Blood Count 8.8 K/mm3 (4.5-11.0)
[2016-09-28 08:02] LABS: Mean Corpuscular Hemoglobin 24 pg (28-32); Red Cell Distribution Width 21.8 % (13.2-15.2)
[2016-09-28 08:10] LABS: Fibrinogen 349 mg/dl (211-480); INR 1.19 (0.87-1.13); Partial Thromboplastin Time 34.9 Sec. (24.2-36.6)
[2016-09-28 08:17] LABS: Hematocrit TNR % (30.3-42.9); Hemoglobin TNR gm/dl (10.1-14.3); Mean Corpuscular HGB Conc TNR % (30-34); Mean Corpuscular Hemoglobin TNR pg (28-32); Mean Corpuscular Volume TNR fl (79-97); Mean Platelet Volume TNR fl (6-12); Platelet Count TNR K/mm3 (140-440); Red Blood Count TNR M/mm3 (3.65-5.03); Red Cell Distribution Width TNR % (13.2-15.2); White Blood Count TNR K/mm3 (4.5-11.0)
[2016-09-28 08:18] LABS: Anion Gap 18 mmol/L; BUN/Creatinine Ratio 17.77; Blood Urea Nitrogen 16 mg/dL (7-17); Calcium 8.5 mg/dL (8.4-10.2); Carbon Dioxide 25 mmol/L (22-30); Chloride 96.2 mmol/L (98-107); Glucose 148 mg/dL (65-100); Potassium 4.3 mmol/L (3.6-5.0); Sodium 135 mmol/L (137-145)
[2016-09-28 08:20] LABS: Basophils % (Auto) TNR % (0.0-1.8); Eosinophils % (Auto) TNR % (0.0-4.3)
[2016-09-28 08:21] LABS: Diff Status TNR
--- NOTE | 2016-09-28 10:59 | Vascular Lab Report ---
LOWER EXTREMITY VENOUS DUPLEX: REASON FOR EXAM: Shortness of breath. COMMENTS ON THE RIGHT: Acute deep venous thrombosis is noted in the proximal femoral vein deep femoral vein extending into the common femoral and external iliac veins. The remaining veins visualized are freely compressible without evidence of internal echogenicity. Spontaneous and phasic flow is absent proximally. COMMENTS ON THE LEFT: All veins visualized are freely compressible without evidence of internal echogenicity. Flow is spontaneous and phasic throughout. IMPRESSION: Acute deep venous thrombosis in the right lower extremity
[2016-09-28] MEDS ORDERED: HEPARIN 10,000 UNITS/10 ML ONE ×3 (11:36→16:15)
[2016-09-28] MEDS ORDERED: ANCEF/STERILE WATER 2 GM/20 ML 2 GM/20 ML SYRINGE IV ONE (11:36)
[2016-09-28] MEDS ORDERED: NACL 0.9% 500 ML 500 ML ONE ×2 (11:36→14:21)
[2016-09-28] MEDS ORDERED: VERSED ONE ×4 (11:36→14:54)
[2016-09-28] MEDS ORDERED: SUBLIMAZE ONE ×3 (11:36→14:54)
[2016-09-28] MEDS ORDERED: HEPARIN/NS 5000 UNIT/500ML(CATH LAB) 1,000 ML IR ONE (11:36)
[2016-09-28] MEDS: HEPARIN 10,000 UNITS/10 ML ONE ×3 (12:00→15:30)
[2016-09-28] MEDS ORDERED: XYLOCAINE 1%/ EPI 1:100,000 INFILTRATI ONE (12:02)
[2016-09-28] MEDS: VERSED ONE ×8 (12:05→15:30)
[2016-09-28] MEDS: SUBLIMAZE ONE ×8 (12:05→15:30)
[2016-09-28] MEDS: XYLOCAINE 1%/ EPI 1:100,000 INFILTRATI ONE (12:16)
[2016-09-28] MEDS ORDERED: HEPARIN/NS 5000 UNIT/500ML(CATH LAB) 500 ML IR ONE ×4 (12:56→15:16)
[2016-09-28] MEDS ORDERED: NACL 0.9% 50 ML ONE (13:49)
[2016-09-28] MEDS ORDERED: CATHFLO ONE ×2 (13:49→13:50)
[2016-09-28] MEDS ORDERED: WATER FOR INJ (PF) 20 ML ONE (13:49)
[2016-09-28] MEDS: CATHFLO ONE (14:01)
[2016-09-28] MEDS ORDERED: ZOFRAN ONE (14:20)
--- NOTE | 2016-09-28 14:48 | Consultation ---
History of Present Illness Consult date: 09/28/16 Requesting physician: KISHA OWENS History of present illness: shortness of breath and right leg pain History of present illness: Patient is a 36 -year-old female with a past medical history hypothyroidism and left leg DVT was on anticoagulant 6 months who presents with a two days history of shortness of breath worse with ambulation, right leg pain and right-sided chest pain. The symptoms began two days prior to admission, while she was at work, where worsening of her dyspnea and pain prompted her to come to the emergency room. S The right-sided pain is located midway down her ribcage, below the axilla. This pain is sharp, about 10/10 in severity, and worsens with movement and cough. Pressing on the chest does not recreate the pain. She feels that the pain has improved by morphine that she received in the Emergency room. The dyspnea has been severe, and it is difficult for her to walk more than a few feet across a room. She states that she feels as though there is a rattling in her chest. At baseline, she experiences dyspnea on exertion and has no history of COPD or other respiratory problem. She denies smoking, using drugs. Patient reported that she has had an unprovoked left leg DVT 2 years ago and she was on anticoagulant for 6 months. It wsa thought at the time it may have been a childhood knee injury that was never addressed. she does not recall a hypercoagulable work up bring done then. She had a miscarriage- the fetus was 8 weeks. She denies any family history of DVTs , PEs or early cancers. She was advised by her [facility] to stop the anticoagulant. She is s/p EKOS and has been admitted to the ICU for monitoring. We have been consulted for critical care management. Patient was seen and examined. Vitals, labs, medications were reviewed. She complains of being thirsty, she was discussed during the interdisciplinary ICU team rounds Past History Past Medical History: hypothyroidism (she portably does not have a period due to her thyroid abnormalities), other (left leg DVT 2 years ago) Past Surgical History: Social history: lives with family (2 male children), other (she works at the front window cashier of a hotel). denies: smoking Family history: CAD, diabetes, hypertension Medications and Allergies Allergies Allergy/AdvReac Type Severity Reaction Status Date / Time milk Allergy Diarrhea Verified 09/27/16 02:08 Home Medications Medication Instructions Recorded Confirmed Last Taken Type Multivitamin Tab [Multiple Vitamin 1 each PO QDAY 09/27/16 09/27/16 09/26/16 History TAB (Theragran)] Active Meds: Active Medications Acetaminophen (Tylenol) 650 mg PO Q4H PRN PRN Reason: Pain MILD(1-3)/Fever >100.5/MORFIN Acetaminophen/Hydrocodone Bitart (Isabela 5/325) 2 each PO Q6H PRN PRN Reason: Pain, Moderate (4-6) Last Admin: 09/27/16 21:13 Dose: 2 each Bisacodyl (Dulcolax) 10 mg OR QDAY PRN PRN Reason: Constipation unrelieved by MOM Alteplase, Recombinant 10 mg/ (Sodium Chloride) 250 mls @ 10 mls/hr EKOSDLUMEN DIRECT RADHA Last Admin: 09/27/16 19:30 Dose: 10 mls/hr Alteplase, Recombinant 10 mg/ (Sodium Chloride) 250 mls @ 10 mls/hr IV DIRECT RADHA Last Admin: 09/27/16 19:30 Dose: 10 mls/hr Heparin Sodium/Sodium Chloride (Heparin/ 0.45% Nacl-25,000 Unit/500 Ml) 25,000 unit in 500 mls @ 10 mls/hr SHEATH DIRECT RADHA; 500 UNITS/HR PRN Reason: Protocol Heparin Sodium/Sodium Chloride (Heparin/ 0.45% Nacl-25,000 Unit/500 Ml) 25,000 unit in 500 mls @ 10 mls/hr SHEATH DIRECT RADHA; 500 UNITS/HR PRN Reason: Protocol Last Admin: 09/27/16 19:30 Dose: 500 units/hr, 10 mls/hr Sodium Chloride (Nacl 0.9% 1000 Ml) 1,000 mls @ 30 mls/hr IV DIRECT RADHA Sodium Chloride (Nacl 0.9% 1000 Ml) 1,000 mls @ 30 mls/hr SHEATH DIRECT RADHA Last Admin: 09/27/16 21:15 Dose: 30 mls/hr Sodium Chloride (Nacl 0.9% 1000 Ml) 1,000 mls @ 35 mls/hr EKOSCLUMEN DIRECT RADHA Sodium Chloride (Nacl 0.9% 1000 Ml) 1,000 mls @ 30 mls/hr SHEATH DIRECT RADHA Last Admin: 09/27/16 21:16 Dose: 30 mls/hr Sodium Chloride (Nacl 0.9% 1000 Ml) 1,000 mls @ 35 mls/hr EKOSCLUMEN DIRECT RADHA Last Admin: 09/27/16 19:30 Dose: 35 mls/hr Levothyroxine Sodium (Synthroid) 75 mcg PO DAILY@0600 RADHA Magnesium Hydroxide (Milk Of Magnesia) 30 ml PO Q4H PRN PRN Reason: Constipation Morphine Sulfate (Morphine) 4 mg IV Q4H PRN PRN Reason: Pain , Severe (7-10) Last Admin: 09/28/16 05:31 Dose: 4 mg Morphine Sulfate (Morphine) 2 mg IV Q4H PRN PRN Reason: Pain, Moderate (4-6) Ondansetron HCl (Zofran) 4 mg IV Q8H PRN PRN Reason: Nausea And Vomiting Review of Systems All systems: negative (thirst) Physical Examination Vital signs: Vital Signs Temp Pulse Resp BP Pulse Ox 97.6 F 108 H 22 136/88 90 09/27/16 01:58 09/27/16 01:58 09/27/16 01:58 09/27/16 01:58 09/27/16 01:58 General appearance: no acute distress, other (obese, with snoring- easily roused ) Eyes: non-icteric ENT: oropharynx moist, other (mallampatti score 4/4) Neck: supple, no JVD, other (short neck) Effort: normal Ascultation: Bilateral: clear, diminished breath sounds Cardiovascular: regular rate and rhythm, other (S1,S2, no murmurs, gallops or rubs) Gastrointestinal: normoactive bowel sounds, soft, non-tender, non-distended, other (obese, jones catheter in plae draining clear urine) Integumentary: normal Extremities: no cyanosis, no edema (left groin femoral sheeth with catheters in place, chronic venous stasis), pink and warm, pulses normal, no ischemia or petechiae Musculoskeletal: no deformities normal mental status, non-focal exam, pupils equal and round, CN II-XII normal affect normal Results - Laboratory Findings CBC and BMP: 09/28/16 21:15 09/28/16 07:44 PT/INR, D-dimer PT 15.7 Sec. (12.2-14.9) H 09/28/16 07:44 INR 1.19 (0.87-1.13) H 09/28/16 07:44 Abnormal lab findings: Abnormal Labs 09/27/16 09/27/16 09/27/16 16:18 16:18 17:38 RBC 3.60 L Hgb 8.8 L Hct 28.7 L MCV MCH 25 L RDW 22.1 H Lymph % (Auto) Lymph # Seg Neutrophils % 79.1 H Seg Neutrophils # PT 15.6 H INR 1.18 H APTT 45.8 H Heparin Anti-Xa Level 0.20 L Sodium Chloride Glucose 09/27/16 09/28/16 09/28/16 17:38 01:43 01:43 RBC 3.62 L Hgb 8.7 L Hct 27.7 L MCV 77 L D MCH 24 L RDW 22.1 H Lymph % (Auto) 12.6 L Lymph # Seg Neutrophils % 78.7 H Seg Neutrophils # 7.8 H PT INR APTT Heparin Anti-Xa Level 0.10 L Sodium Chloride 96.0 L Glucose 117 H 09/28/16 09/28/16 09/28/16 07:44 07:44 07:44 RBC 3.46 L Hgb 8.3 L Hct 26.4 L MCV 76 L MCH 24 L RDW 21.8 H Lymph % (Auto) 11.1 L Lymph # 1.0 L Seg Neutrophils % 80.0 H Seg Neutrophils # PT 15.7 H INR 1.19 H APTT Heparin Anti-Xa Level < 0.10 L Sodium 135 L Chloride 96.2 L Glucose 148 H - Diagnostic Findings CT scan - chest: report reviewed U/S of Legs: report reviewed Assessment and Plan - Patient Problems (1) Bilateral pulmonary embolism Current Visit: Yes Status: Acute Plan to address problem: Evidence of right heart strain s/EOS- continue t monitor for adverse effects of bleeding. Probable removal of sheath later today. Get 2D echocardiogram to evaluate severity of right heart strain and probable pulmonary hypertension Hypercoagulable work up She will need life long anticoagulation Monitor hemodynamics closely as she is at risk of acute decompensation (2) Deep vein thrombosis (DVT) of right iliofemoral vein Current Visit: Yes Status: Acute (3) Anemia Current Visit: Yes Status: Acute Qualifiers: Anemia type: A Iron deficiency anemia type: I Vitamin B12 deficiency anemia type: V Folate deficiency anemia type: F Bone marrow failure anemia type: B Hemolytic anemia type: H Other causes of anemia: O Chronic kidney disease stage: C Plan to address problem: Needs work up for anemia.She states that she has not menstruated for a while. Monitor for bleeding and trend CBC (4) Obesity (BMI 30-39.9) Current Visit: Yes Status: Acute Plan to address problem: Lifestyle modifications, exercise on discharge Needs sleep study as out patient ED Critical Care Note - Critical Care Note Total Time (mins): 35 Critical care time in (mins) excluding proc time.: 35 Critical care attestation.: If time is entered above; I have spent that time in minutes in the direct care of this critically ill patient, excluding procedure time.
[2016-09-28] MEDS ORDERED: ELIQUIS ONE (15:52)
--- NOTE | 2016-09-28 16:44 | Post Operative Note ---
Date of procedure: 09/28/16 Pre-op diagnosis: Right ileofemoral DVT, submassive PE Post-op diagnosis: other (Left and right ileofemoral DVT, submassive PE) Findings: 400 mL of blood loss from AngioJet device Procedure: 1. Thrombolytic catheter removal from the left pulmonary artery 2. Thrombolytic catheter removal from the right pulmonary artery 3. Cineangiography of the left lower lobe R pulmonary artery 4. Cineangiography of the left main pulmonary artery 5. Cineangiography of the main pulmonary artery 6. Cineangiography of the right interlobar pulmonary artery 7. Cineangiography of the right main pulmonary artery 8. Venography of the left lower extremity 9. Ultrasound-guided access of the right internal jugular vein 10. Selection of the IVC 11. IVC venography 12. Fluoroscopic-guided placement of an infrarenal IVC filter (retrievable Treasure) with venography 13. Selection of the right popliteal vein with venography of the right lower extremity 14. 6 mg tPA infusion through pulse spray of the right common iliac vein, external iliac vein, common femoral vein, and superficial femoral vein 15. 4 mg tPA infusion through pulse spray of the left common iliac vein, external iliac vein, common femoral vein, and superficial femoral vein 16. 8 [place] AngioJet mechanical thrombectomy of the left common iliac vein, external iliac vein, common femoral vein, and superficial femoral vein 17. Angioplasty of the left common iliac vein, external iliac vein, common femoral vein, and superficial femoral vein with a 12 mm angioplasty balloon 18. 8 [place] AngioJet mechanical thrombectomy of the right common iliac vein, external iliac vein, common femoral vein, and superficial femoral vein 19. Angioplasty of the right common iliac vein, external iliac vein, common femoral vein, and superficial femoral vein with a 12 mm angioplasty balloon 20. 8 [place] MPA aspiration thrombectomy of the right common femoral vein 21. Repeat angioplasty of the right common iliac vein, external iliac vein, common femoral vein, and superficial femoral vein with a 12 mm angioplasty below 22. 8 [place] AngioJet mechanical thrombectomy of the IVC 23. IVC venography Anesthesia: local (w/ conscious sedation) Surgeon: ROMAN BROWN Estimated blood loss: minimal Condition: stable Disposition: ICU
--- NOTE | 2016-09-28 16:47 | Event Note ---
Date: 09/28/16 Status post successful pulmonary artery thrombolytic catheter placement and removal with significantly decreased thrombotic burden. Placement of an IVC filter with mechanical thrombectomy and angioplasty of the bilateral iliofemoral deep venous thrombosis with decreased thrombotic burden Discontinuation of heparin and TPA with initiation of Eliquis PO. Initiation of DEJUAN hose. Please have patient have SCDs if she is in bed. Patient will require being flat for 6 hours with pressure dressing. Pressure dressing can be removed tomorrow. Patient can likely be transitioned out of ICU tomorrow. May have decrease in H&H from AngioJet aspiration of blood. This is expected. Do not discontinue anticoagulation. May require transfusion of 1-2 units.
--- NOTE | 2016-09-28 16:47 | Operative Report ---
Operative Report Operative Report: EXAM: 1. Thrombolytic catheter removal from the left pulmonary artery 2. Thrombolytic catheter removal from the right pulmonary artery 3. Cineangiography of the left lower lobar pulmonary artery 4. Cineangiography of the left main pulmonary artery 5. Cineangiography of the right interlobar pulmonary artery 6. Cineangiography of the right main pulmonary artery 7. Venography of the left lower extremity 8. Ultrasound-guided access of the right internal jugular vein 9. Selection of the IVC 10. IVC venography 11. Fluoroscopic-guided placement of an infrarenal IVC filter (retrievable Nelda) with venography 12. Selection of the right popliteal vein with venography of the right lower extremity 13. 6 mg tPA infusion through pulse spray of the right common iliac vein, external iliac vein, common femoral vein, and superficial femoral vein 14. 4 mg tPA infusion through pulse spray of the left common iliac vein, external iliac vein, common femoral vein, and lower left sided IVC 15. 8 [place] AngioJet mechanical thrombectomy of the left common iliac vein, external iliac vein, and common femoral vein 16. Angioplasty of the left common iliac vein, external iliac vein, common femoral vein, and superficial femoral vein with a 12 mm angioplasty balloon 17. Angioplasty of the left common iliac vein with a 14 mm angioplasty balloon 18. 8 [place] AngioJet mechanical thrombectomy of the right common iliac vein, external iliac vein, common femoral vein, and superficial femoral vein 19. Angioplasty of the right common iliac vein, external iliac vein, common femoral vein, and superficial femoral vein with a 12 mm angioplasty balloon 20. 8 [place] MPA aspiration thrombectomy of the right common femoral vein 21. Repeat angioplasty of the right common iliac vein, external iliac vein, common femoral vein, and superficial femoral vein with a 12 mm angioplasty below 22. 8 [place] AngioJet mechanical thrombectomy of the IVC 23. IVC venography DATE: 09/28/16 SENIOR DATA INTEGRATION DEVELOPER: ROMAN BROWN MD INDICATION: Right-sided symptomatic iliofemoral DVT in a patient with submassive pulmonary embolism with thrombolytic catheter placement the day before. She now presents for day 2 treatment of her pulmonary embolism and treatment of her iliofemoral DVTs. During the procedure, she was found to have a left-sided iliofemoral DVT which required treatment and was performed concurrently. Of note, the patient has severe morbid obesity which complicated treatment of her disease. MEDICATIONS: Please see nursing report for full details. DEVICES: 10 mg tPA 12 mm x 60 mm angioplasty balloon Barren retrievable IVC filter CONTRAST: Please see [employer] report for full details. PROCEDURE: The risks, benefits, and alternatives were discussed with the patient; written informed consent was obtained. The patient was heparinized throughout the case. The patient's right neck and left groin and right groins were prepped and draped in a sterile fashion. The patient had her thrombolytic catheters prepped and draped in a sterile fashion. Fluoroscopy was used to identify the positioning of the thrombolytic catheters which were unchanged. The right lower lobe segmental pulmonary artery thrombolytic catheter was removed over a [place] wire. The left lower lobe segmental pulmonary artery from below the catheter was removed over a [place] wire. 6 [place] guide was advanced coaxially over the left-sided wire to the left lower lobar pulmonary artery which was selected with the catheter. Cineangiography was performed demonstrating no evidence of lobar pulmonary artery thrombus, but some segmental pulmonary artery thrombus. The catheter was retracted to the left main pulmonary artery and cineangiography was performed demonstrating no evidence of left main pulmonary artery emboli. There were some segmental ands subsegmental left-sided pulmonary emboli. Wire and catheter were removed from the pulmonary arteries into the IVC. 6 [place] guide was advanced coaxially over the right-sided wire to the right interlobar pulmonary artery which was selected with the catheter. Cineangiography was performed demonstrating some nonocclusive right interlobar pulmonary emboli with some segmental and subsegmental pulmonary emboli. The catheter was retracted to the right main pulmonary artery and cineangiography demonstrated no large right main pulmonary emboli. Wire and catheter were removed from the pulmonary arteries into the IVC. Through the existing left sided sheath, I attempted aspirate, but found I was unable to. I retracted the sheath over the wire and was able to aspirate blood. Afterwards, digital subtraction angiography was performed demonstrating a nearly occlusive thrombus in the left common iliac vein. The sheath was then partially retracted and digital subtraction angiography demonstrated a thrombus in the lower left external iliac vein extending into the left common femoral vein. Ultrasound was then used to identify the right internal jugular vein. Under direct ultrasound guidance, the patent right internal jugular vein was accessed with a 21-gauge micro-puncture needle. 0.018 inch wire was passed and the IVC. Needle was exchanged for transitional dilator. Wire was exchanged for 0.035 inch wire. Transitional dilator was exchanged for 6 [place] sheath. Pigtail catheter was advanced into the infrarenal IVC. The table was locked. Digital subtraction venography was performed through the pigtail catheter in the IVC. Digital subtraction venography of the inferior vena cava demonstrates a thrombus extending from the left common iliac vein into the lowest part of the IVC. Right common iliac vein does not have a thrombus at its most cephalad portion. The inferior vena cava is normal in size. Renal vein inflow is visualized. The inferior vena cava is adequate to accommodate an IVC filter. The pigtail was removed over a 0.035 inch wire and the sheath was removed over the wire. The IVC filter sheath and introducer were advanced over the wire under direct fluoroscopic guidance. The wire and introducer were removed. The IVC filter deployment system was advanced through the sheath and properly positioned under fluoroscopic guidance. The IVC filter was deployed under direct fluoroscopic guidance. Bard Nelda IVC filter is properly positioned, below the renal veins and above the iliocaval confluence. Venography was performed through the sheath to confirm position without injury of the IVC. The deployment system, and sheath were removed over a wire and exchanged for a 9 [place] sheath. Using multiple devices, wire and catheter were negotiated into the right popliteal vein which was successfully selected. During this selection, the right external iliac vein, common femoral vein, superficial femoral vein, and popliteal vein were selected with digital subtraction angiography demonstrating thrombus throughout all segments. Two thirds of the TPA was pulse sprayed (approximately 6 mg tPA) using 8 [place] AngioJet into the right superficial femoral vein, right common femoral vein, right external iliac vein, and right common iliac vein. 25 minute dwell time was allowed. Afterwards, using multiple devices, wire and catheter were negotiated into the left superficial femoral vein which was successfully selected. During the selection, the left external iliac vein, and common femoral vein were selected. Digital subtraction angiography demonstrated occlusive thrombus in the left common femoral vein, lower left external iliac vein, and left common iliac vein. The rest of the TPA was pulse sprayed (approximately 4 mg tPA) using 8 [place] AngioJet to the left common femoral vein, external iliac vein, and left common iliac vein. This also was extended into the left lower IVC. 20 minute dwell time was allowed. Afterwards, mechanical thrombectomy was performed in the left common femoral vein, external iliac vein, and common iliac vein. Mechanical thrombectomy was also performed in the left lower IVC. Repeat digital subtraction angiography was performed demonstrating clearance of most of the thrombus in the left common femoral vein, external iliac vein, and common iliac vein. There was underlying moderate narrowing of the left external iliac vein and common femoral vein and upper portion of the left superficial femoral vein. 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 I decided not to place stents in this patient due to her severe morbid obesity which very possibly could prevent me from re-intervening on her as she is at the size limit for the table pt weight 450 (weight max 450). 12 mm angioplasty balloon was advanced over the wire and use to perform angioplasty of the left proximal most superficial femoral vein, common femoral vein, external iliac vein, and common iliac vein. 14 mm angioplasty balloon was advanced over the wire used to perform angioplasty of the left common iliac vein. Digital subtraction angiography demonstrated prompt flow through the left superficial femoral vein, common femoral vein, and external iliac vein with minimal residual narrowing. The left common iliac vein continue to be compressed but I elected to avoid stenting her due to concerns about not being able to re-intervene in the future. The right superficial femoral vein was then selected. 8 [place] AngioJet mechanical thrombectomy was then performed of the right superficial femoral vein , common femoral vein, external iliac vein, and common iliac vein. Afterwards, digital subtraction angiography was performed in the right superficial femoral vein, common femoral vein, and external iliac vein and common iliac vein. There was residual thrombus in the lower portion of the right superficial femoral vein, but clearance of nearly all of the thrombus in the rest of the superficial femoral vein, mid and upper external iliac vein, and common iliac vein. There is still residual thrombus in the right common iliac vein and lower external iliac vein. 8 [place] AngioJet mechanical thrombectomy was then performed of the right common femoral vein, and external iliac vein again. 12 mm angioplasty balloon was advanced over the wire use perform angioplasty of the right proximal superficial femoral vein, common femoral vein, external iliac vein, and common iliac vein. Digital subtraction angiography demonstrated clearance of almost all thrombus with excellent results except for the right common femoral vein, and lower right external iliac vein which had a large amount of residual thrombus. The right mid and upper external iliac, right common iliac, and proximal superficial femoral vein had minimal residual narrowing. 8 [place] guide was advanced over the wire used to perform aspiration thrombectomy of the right common femoral vein and lower right external iliac vein multiple times. A large amount of thrombus was removed. 12 mm angioplasty balloon was advanced over the wire and used to perform repeat angioplasty in the right superficial femoral vein, common femoral vein, and external iliac vein. Digital subtraction angiography was performed demonstrating prompt flow of contrast with minimal residual narrowing of the right superficial femoral vein, and external iliac vein, with mild to moderate residual narrowing of the right common iliac vein and common femoral vein. Despite this narrowing, there was prompt flow of contrast into the IVC. Digital subtraction angiography was performed below the filter demonstrating a moderate amount of retained thrombus in the filter. 8 [place] AngioJet was advanced over the wire use perform mechanical thrombectomy in the IVC filter. Digital subtraction angiography was performed demonstrating clearance of nearly all thrombus in the filter. All wires, catheters, and sheaths were removed. Pressure was held until hemostasis was achieved. The patient was given 10 mg of Eliquis. Compression hose were applied. Pressure bandages were applied to the access sites. The patient was transferred from the angiography suite in stable condition. FINDINGS: Please see procedure note above. IMPRESSION: 1. Successful bilateral thrombolytic catheter removal from the right and left pulmonary artery with right and left pulmonary artery selections and angiograms. 2. Successful placement of an infrarenal IVC filter. 3. Successful mechanical thrombectomy of the IVC, bilateral common iliac veins , external iliac veins, common femoral veins, and right superficial femoral vein 4. Successful angioplasty of the IVC, bilateral common iliac veins, external iliac veins, common femoral veins, and superficial femoral veins.
[2016-09-28] MEDS ORDERED: MORPHINE ONE (16:55)
[2016-09-28] MEDS: DILAUDID ONE ×2 (17:02→17:42)
--- NOTE | 2016-09-28 18:12 | Progress Note ---
Assessment and Plan Assessment and plan: Patient is a 36 -year-old female with a past medical history hypothyroidism and left leg DVT was on anticoagulant 6 months who presents with a two days history of shortness of breath, right leg pain and right-sided chest pain. The symptoms began two days prior to admission, while she was at work, where worsening of her dyspnea and pain prompted her to come to the emergency room. There, he was diagnosed with pneumonia and placed on Levaquin 500 mg daily and Benzonatate 200 mg TID, which he has been taking for two days with only slight improvement. The right-sided pain is located midway down her ribcage, below the axilla. This pain is sharp, about 10/10 in severity, and worsens with movement and cough. Pressing on the chest does not recreate the pain. She feels that the pain has improved by morphine that she received in the Emergency room. The dyspnea has been severe, and it is difficult for her to walk more than across a room. She states that she feels as though there is a rattling in her chest. At baseline, she experiences dyspnea on exertion and has no history of COPD or other respiratory problem. she denies smoking, using drugs. She denies a previous history of pulmonary embolism. Patient reported that she has had left leg DVT 2 years ago and she was on anticoagulant for 6 months. It was stopped by her physicians. On admission patient was noted to have thrombocytosis therapy. And is was recovering well in the ICU. 1 Pulmonary embolism Status post Successful pulmonary artery thrombolytic catheter placement IVC filter placed today Switch to Eliquis and stop TPA and heparin per vascular 2. Right leg DVT Eliquis/IVC filter warm compresses to the affected leg 3.Acute respiratory failure Likely due to PE burden, CONTINUE supportive pulmonary care, Tungsten Refiner input noted 4. Hypothyroidism We will start on Synthroid 5. Morbid obesity Lifestyle modifications discussed in detail 6. Anemia ?Iron deficiency. Will monitor post thrombolysis. The high probability of a clinically significant, sudden or life threatening deterioration of the [Pulmonary, hematology] system(s) required my full and direct attention, intervention and personal management. The aggregate critical care time was [35] minutes. This time is in addition to time spent performing reported procedures but includes the following: [x] Data Review and interpretation [x] Patient assessment and monitoring of vital signs [x] Documentation [x] Medication orders and management History Interval history: Patient seen and examined in no acute distress. Hospitalist Physical - Physical exam Narrative exam: VITAL SIGNS: Reviewed. GENERAL: The patient appeared well nourished and normally developed, morbidly obese. Vital signs as documented. HEAD: No signs of head trauma. EYES: Pupils are equal. Extraocular motions intact. EARS: Hearing grossly intact. MOUTH: Oropharynx is normal. NECK: No adenopathy, no JVD. CHEST: Chest with clear breath sounds bilaterally. No wheezes, rales, or rhonchi. CARDIAC: Regular rate and rhythm. S1 and S2, without murmurs, gallops, or rubs. VASCULAR: No Edema. Peripheral pulses normal and equal in all extremities. ABDOMEN: Soft, without detectable tenderness. No sign of distention. No rebound or guarding, and no masses palpated. Bowel Sounds normal. MUSCULOSKELETAL: Good range of motion of all major joints. Extremities without clubbing, cyanosis or edema. NEUROLOGIC EXAM: Alert and oriented x 3. No focal sensory or strength deficits. Speech normal. Follows commands. PSYCHIATRIC: Mood normal. SKIN: No rash or lesions. - Constitutional Vitals: Temp Pulse Resp BP Pulse Ox 98.4 F 93 H 13 120/63 98 09/28/16 08:00 09/28/16 10:31 09/28/16 10:31 09/28/16 10:31 09/28/16 10:31 General appearance: Present: no acute distress, obese (morbidly obese) Results - Labs CBC & Chem 7: 09/28/16 07:44 09/28/16 07:44 Labs: Laboratory Last Values WBC TNR 09/28/16 07:44 RBC TNR 09/28/16 07:44 Hgb TNR 09/28/16 07:44 Hct TNR 09/28/16 07:44 MCV TNR 09/28/16 07:44 MCH TNR 09/28/16 07:44 MCHC TNR 09/28/16 07:44 RDW TNR 09/28/16 07:44 Plt Count TNR 09/28/16 07:44 Lymph % (Auto) TNR 09/28/16 07:44 [place] % (Auto) TNR 09/28/16 07:44 Eos % (Auto) TNR 09/28/16 07:44 Baso % (Auto) TNR 09/28/16 07:44 Lymph # TNR 09/28/16 07:44 [place] # TNR 09/28/16 07:44 Eos # TNR 09/28/16 07:44 Baso # TNR 09/28/16 07:44 Add Manual Diff TNR 09/28/16 07:44 Seg Neutrophils % TNR 09/28/16 07:44 Seg Neutrophils # TNR 09/28/16 07:44 PT 15.7 Sec. (12.2-14.9) H 09/28/16 07:44 INR 1.19 (0.87-1.13) H 09/28/16 07:44 APTT 34.9 Sec. (24.2-36.6) 09/28/16 07:44 Fibrinogen 349 mg/dl (211-480) 09/28/16 07:44 Heparin Anti-Xa Level < 0.10 U.I./ml (0.3-0.7) L 09/28/16 07:44 Sodium 135 mmol/L (137-145) L 09/28/16 07:44 Potassium 4.3 mmol/L (3.6-5.0) 09/28/16 07:44 Chloride 96.2 mmol/L (98-107) L 09/28/16 07:44 Carbon Dioxide 25 mmol/L (22-30) 09/28/16 07:44 Anion Gap 18 mmol/L 09/28/16 07:44 BUN 16 mg/dL (7-17) 09/28/16 07:44 Creatinine 0.9 mg/dL (0.7-1.2) 09/28/16 07:44 Estimated GFR > 60 ml/min 09/28/16 07:44 BUN/Creatinine Ratio 17.77 % 09/28/16 07:44 Glucose 148 mg/dL (65-100) H 09/28/16 07:44 Calcium 8.5 mg/dL (8.4-10.2) 09/28/16 07:44 Total Bilirubin 1.00 mg/dL (0.1-1.2) 09/27/16 02:18 Direct Bilirubin 0.2 mg/dL (0-0.2) 09/27/16 02:18 Indirect Bilirubin 0.8 mg/dL 09/27/16 02:18 AST 24 units/L (5-40) 09/27/16 02:18 ALT 27 units/L (7-56) 09/27/16 02:18 Alkaline Phosphatase 59 units/L (35-129) 09/27/16 02:18 Troponin T < 0.010 ng/mL (0.00-0.029) 09/27/16 02:18 NT-Pro-B Natriuret Pep 1343 pg/mL (0-450) H 09/27/16 02:18 Total Protein 8.1 g/dL (6.3-8.2) 09/27/16 02:18 Albumin 3.9 g/dL (3.9-5) 09/27/16 02:18 Albumin/Globulin Ratio 0.9 % 09/27/16 02:18 TSH 25.680 mlU/mL (0.270-4.200) H 09/27/16 04:07 Free T4 0.80 ng/dL (0.76-1.46) 09/27/16 04:07 HCG, Qual Negative (Negative) 09/27/16 04:07
[2016-09-28] MEDS: SYNTHROID PO SCH (18:31)
[2016-09-28] MEDS: ELIQUIS PO SCH (21:34)
[2016-09-28 21:38] LABS: Basophils % (Auto) 0.3 % (0.0-1.8); Eosinophils % (Auto) 0.8 % (0.0-4.3); Hematocrit 23.2 % (30.3-42.9); Hemoglobin 7.3 gm/dl (10.1-14.3); Mean Corpuscular HGB Conc 32 % (30-34); Mean Corpuscular Volume 78 fl (79-97); Platelet Count 130 K/mm3 (140-440); Red Blood Count 2.97 M/mm3 (3.65-5.03); White Blood Count 10.7 K/mm3 (4.5-11.0)
[2016-09-28 21:40] LABS: Mean Corpuscular Hemoglobin 25 pg (28-32)
[2016-09-28 21:49] LABS: Fibrinogen 158 mg/dl (211-480)
[2016-09-29 04:43] LABS: Hematocrit 22.2 % (30.3-42.9); Hemoglobin 7.3 gm/dl (10.1-14.3)
[2016-09-29] MEDS: SYNTHROID PO SCH (06:37)
[2016-09-29] MEDS: ELIQUIS PO SCH (09:58)
--- NOTE | 2016-09-29 10:08 | Hem/Onc Consultation ---
History of Present Illness - Reason for Consult Consult date: 09/29/16 - History of Present Illness Patient is a 36-year-old very pleasant patient who presented to the hospital with shortness of breath and leg pain. Patient was found to have right lower leg DVT along with bilateral Coumadin 3 emboli. Patient states that the shortness of breath was sudden. She denies tobacco abuse. Does not take any hormones. Does not have any family history of thrombosis. Eyes any prolonged immobilization although she does work in a hotel and stands all the time. Patient has had DVT of the left lower leg 2 years ago and was on anticoagulation for about 6 months and then it was stopped. Patient has history of hypothyroidism. Patient does have now evidence of thrombocytopenia. She came with a normal platelet count and today's platelet count is 96,000. Patient has had evidence of thrombolysis. Mechanical thrombectomy and angioplasty. Heparin was given initially. At least she has been put on eliquis. Past History Past Medical History: hypothyroidism (she portably does not have a period due to her thyroid abnormalities), other (left leg DVT 2 years ago) Past Surgical History: Social history: lives with family (2 male children), other (she works at the front desk officer of a hotel). denies: smoking Family history: CAD, diabetes, hypertension Medications and Allergies Allergies Allergy/AdvReac Type Severity Reaction Status Date / Time milk Allergy Diarrhea Verified 09/27/16 02:08 Home Medications Medication Instructions Recorded Confirmed Last Taken Type Multivitamin Tab [Multiple Vitamin 1 each PO QDAY 09/27/16 09/27/16 09/26/16 History TAB (Theragran)] Active Meds: Active Medications Acetaminophen (Tylenol) 650 mg PO Q4H PRN PRN Reason: Pain MILD(1-3)/Fever >100.5/MORFIN Acetaminophen/Hydrocodone Bitart ([place] 5/325) 2 each PO Q6H PRN PRN Reason: Pain, Moderate (4-6) Last Admin: 09/27/16 21:13 Dose: 2 each Apixaban (Eliquis) 10 mg PO Q12HR RADHA PRN Reason: Protocol Stop: 10/05/16 22:01 Last Admin: 09/29/16 09:58 Dose: 10 mg Apixaban (Eliquis) 5 mg PO Q12HR RADHA PRN Reason: Protocol Bisacodyl (Dulcolax) 10 mg [place] QDAY PRN PRN Reason: Constipation unrelieved by MOM Levothyroxine Sodium (Synthroid) 75 mcg PO DAILY@0600 RADHA Last Admin: 09/29/16 06:37 Dose: 75 mcg Magnesium Hydroxide (Milk Of Magnesia) 30 ml PO Q4H PRN PRN Reason: Constipation Morphine Sulfate (Morphine) 4 mg IV Q4H PRN PRN Reason: Pain , Severe (7-10) Last Admin: 09/28/16 05:31 Dose: 4 mg Morphine Sulfate (Morphine) 2 mg IV Q4H PRN PRN Reason: Pain, Moderate (4-6) Ondansetron HCl (Zofran) 4 mg IV Q8H PRN PRN Reason: Nausea And Vomiting Exam - Exam Narrative Exam: Mildly short of breath. Right neck bandaged left groin bandaged - Constitutional Vitals: Last Vital Signs Temp 99.2 F 09/29/16 08:00 Pulse 95 H 09/29/16 08:01 Resp 25 H 09/29/16 08:01 BP 106/64 09/29/16 08:01 Pulse Ox 97 09/29/16 08:55 General appearance: mild distress Performance status: 4-completely disabled - Neck Neck: supple - Respiratory Respiratory effort: Positive: normal Respiratory: bilateral: diminished - Cardiovascular Rhythm: regular Extremities: abnormal (Patrice wrap) - Gastrointestinal General gastrointestinal: Present: soft Results - Labs lab Results: Laboratory Results - last 24 hr 09/28/16 09/28/16 09/29/16 21:15 21:15 03:45 WBC 10.7 RBC 2.97 L Hgb 7.3 L 7.3 L Hct 23.2 L 22.2 L MCV 78 L MCH 25 L MCHC 32 RDW 22.0 H Plt Count 130 L 96 L Lymph % (Auto) 10.2 L [place] % (Auto) 9.5 H Eos % (Auto) 0.8 Baso % (Auto) 0.3 Lymph # 1.1 L [place] # 1.0 H Eos # 0.1 Baso # 0.0 Seg Neutrophils % 79.2 H Seg Neutrophils # 8.5 H Fibrinogen 158 L Heparin Anti-Xa Level < 0.10 L Assessment and Plan Young 36-year-old female with multiple episodes of thrombosis. Height her coag workup has been ordered by primary care physician. We will follow-up on that. The fact that she's had 2 episodes of thrombosis, seem to be unprovoked, would recommend anticoagulation indefinitely. Next Thrombocytopenia could be related to the procedures she had done along with heparin. We will order heparin-induced thrombo cytopenia. Heparin has been stopped now. We will watch CBC closely. Patient is hypothyroid and does follow-up with her primary physician or that.
--- NOTE | 2016-09-29 10:12 | Event Note ---
Date: 09/29/16 She also has anemia. We will order anemia workup. Monitor counts
--- NOTE | 2016-09-29 10:43 | Progress Note ---
Assessment and Plan - Patient Problems (1) Anemia Current Visit: Yes Status: Acute Qualifiers: Anemia type: A Iron deficiency anemia type: I Vitamin B12 deficiency anemia type: V Folate deficiency anemia type: F Bone marrow failure anemia type: B Hemolytic anemia type: H Other causes of anemia: O Chronic kidney disease stage: C Plan to address problem: - Needs work up for anemia.She states that she has not menstruated for a while. - Monitor for bleeding and trend CBC - iron studies sent - will get stool guaiac - will consult hematology re: Anemia & VTE (2) Bilateral pulmonary embolism Current Visit: Yes Status: Acute Plan to address problem: - s/p EkOS sheath removal - await 2D ECHO report - follow Hypercoagulable work up - She will need life long anticoagulation - overall more stable - continue supplemental oxygen to keepn O2 Sats > 94% (3) Deep vein thrombosis (DVT) of right iliofemoral vein Current Visit: Yes Status: Acute Plan to address problem: - as above (4) Obesity (BMI 30-39.9) Current Visit: Yes Status: Acute Plan to address problem: - Lifestyle modifications, exercise on discharge etc counselled - Needs sleep study as out patient - will get ABG to evaluate for hypercapnia also re: hypersomnolence - will deploy empiric BIPAP qhs (5) Sleep disorder breathing Current Visit: Yes Status: Acute Plan to address problem: - outpatient sleep clinic evaluation - weight loss - BIPAP qhs (6) Discharge planning issues Current Visit: Yes Status: Acute Plan to address problem: - OK to transfer to teleetry once cleared by vascular team (case discussed during team rounds) Subjective Date of service: 09/29/16 Principal diagnosis: Acute Hypoxemic Respiratory Failure; VTE s/p EkOS; morbid Obesity Interval history: Seen and examined at bedside; 24 hour events reviewed; nursing and respiratory care staff consulted; no adverse overnight events reported to me; resting peacefully in bed; tolerating meals; No N/V/F/C; no gross bleeding; denies a history of sleep disordered breathing Objective Vital Signs - 12hr 09/28/16 09/28/16 09/28/16 23:00 23:23 23:30 Temperature Pulse Rate 100 H 97 H 97 H Pulse Rate [ From Monitor] Respiratory 13 25 H 25 H Rate Blood Pressure 101/54 129/65 117/72 O2 Sat by Pulse 91 97 95 Oximetry 09/29/16 09/29/16 09/29/16 00:00 00:31 01:00 Temperature 99.6 F Pulse Rate 98 H 97 H 95 H Pulse Rate [ From Monitor] Respiratory 27 H 26 H 24 Rate Blood Pressure 124/61 128/56 119/56 O2 Sat by Pulse 93 90 95 Oximetry 09/29/16 09/29/16 09/29/16 01:30 02:01 02:30 Temperature Pulse Rate 94 H 92 H 98 H Pulse Rate [ From Monitor] Respiratory 21 15 18 Rate Blood Pressure 113/65 114/68 115/67 O2 Sat by Pulse 96 99 92 Oximetry 09/29/16 09/29/16 09/29/16 03:00 03:30 04:00 Temperature 99.4 F Pulse Rate 96 H 97 H Pulse Rate [ From Monitor] Respiratory 24 25 H Rate Blood Pressure 124/58 125/62 O2 Sat by Pulse 93 88 Oximetry 09/29/16 09/29/16 09/29/16 04:01 04:30 05:00 Temperature Pulse Rate 98 H 94 H 102 H Pulse Rate [ From Monitor] Respiratory 13 22 28 H Rate Blood Pressure 129/54 144/66 120/57 O2 Sat by Pulse 95 97 80 L Oximetry 09/29/16 09/29/16 09/29/16 05:31 06:00 06:30 Temperature Pulse Rate 98 H 97 H 98 H Pulse Rate [ From Monitor] Respiratory 24 24 20 Rate Blood Pressure 101/62 116/59 100/60 O2 Sat by Pulse 96 94 94 Oximetry 09/29/16 09/29/16 09/29/16 07:01 07:31 08:00 Temperature 99.2 F Pulse Rate 98 H 97 H Pulse Rate [ From Monitor] Respiratory 23 25 H Rate Blood Pressure 117/59 126/67 O2 Sat by Pulse 95 98 Oximetry 09/29/16 09/29/16 09/29/16 08:01 08:55 10:17 Temperature Pulse Rate 95 H Pulse Rate [ 98 H From Monitor] Respiratory 25 H 18 Rate Blood Pressure 106/64 O2 Sat by Pulse 96 97 92 Oximetry Constitutional: no acute distress, other (obese, with snoring- easily roused) Eyes: non-icteric ENT: oropharynx moist, other (mallampatti score 4/4) Neck: supple, no JVD, other (short neck) Effort: normal Ascultation: Bilateral: clear, diminished breath sounds Cardiovascular: regular rate and rhythm, other (S1,S2, no murmurs, gallops or rubs) Gastrointestinal: normoactive bowel sounds, soft, non-tender, non-distended, other (obese, jones catheter in plae draining clear urine) Integumentary: normal Extremities: no cyanosis, no edema, pink and warm, pulses normal, no ischemia or petechiae Neurologic: normal mental status, non-focal exam, pupils equal and round, CN II- XII normal Psychiatric: affect normal CBC and BMP: 09/29/16 03:45 09/28/16 07:44 ABG, PT/INR, D-dimer: PT/INR, D-dimer PT 15.7 Sec. (12.2-14.9) H 09/28/16 07:44 INR 1.19 (0.87-1.13) H 09/28/16 07:44 Abnormal lab findings: Abnormal Labs 09/27/16 09/27/16 09/27/16 16:18 16:18 17:38 RBC 3.60 L Hgb 8.8 L Hct 28.7 L MCV MCH 25 L RDW 22.1 H Plt Count Lymph % (Auto) [place]oun % (Auto) Lymph # Cal[place]oun # Seg Neutrophils % 79.1 H Seg Neutrophils # PT 15.6 H INR 1.18 H APTT 45.8 H Fibrinogen Heparin Anti-Xa Level 0.20 L Sodium Chloride Glucose 09/27/16 09/28/16 09/28/16 17:38 01:43 01:43 RBC 3.62 L Hgb 8.7 L Hct 27.7 L MCV 77 L D MCH 24 L RDW 22.1 H Plt Count Lymph % (Auto) 12.6 L [place] % (Auto) Lymph # [place] # Seg Neutrophils % 78.7 H Seg Neutrophils # 7.8 H PT INR APTT Fibrinogen Heparin Anti-Xa Level 0.10 L Sodium Chloride 96.0 L Glucose 117 H 09/28/16 09/28/16 09/28/16 07:44 07:44 07:44 RBC 3.46 L Hgb 8.3 L Hct 26.4 L MCV 76 L MCH 24 L RDW 21.8 H Plt Count Lymph % (Auto) 11.1 L [place] % (Auto) Lymph # 1.0 L [place] # Seg Neutrophils % 80.0 H Seg Neutrophils # PT 15.7 H INR 1.19 H APTT Fibrinogen Heparin Anti-Xa Level < 0.10 L Sodium 135 L Chloride 96.2 L Glucose 148 H 09/28/16 09/28/16 09/29/16 21:15 21:15 03:45 RBC 2.97 L Hgb 7.3 L 7.3 L Hct 23.2 L 22.2 L MCV 78 L MCH 25 L RDW 22.0 H Plt Count 130 L 96 L Lymph % (Auto) 10.2 L [place] % (Auto) 9.5 H Lymph # 1.1 L [place]oun # 1.0 H Seg Neutrophils % 79.2 H Seg Neutrophils # 8.5 H PT INR APTT Fibrinogen 158 L Heparin Anti-Xa Level < 0.10 L Sodium Chloride Glucose
--- NOTE | 2016-09-29 11:29 | Progress Note ---
Assessment and Plan 36-year-old female with severe morbid obesity who present with submassive pulmonary embolism and bilateral iliofemoral deep venous thrombosis status post thrombectomy of the lower extremity deep venous thrombosis and thrombolysis of the pulmonary embolism. Patient tolerated the procedure well. Her breathing has symptomatically improved. Patient has some left groin discomfort. Her legs feel better than when she arrived to the hospital, but her right leg is still somewhat painful. Will keep patient flat for 4 hrs then can be transferred out of the unit. H&H decline, which is expected with AngioJet aspiration thrombectomy. I expect she may have a further decline, and therefore we will transfuse 1 unit packed RBC. Patient require anticoagulation indefinitely. We will need Eliquis. Please coordinate with case management to provide patient Eliquis patient therapist's assistant program. Appreciate hematology assistance. Subjective Date of service: 09/29/16 Principal diagnosis: Ileofemoral DVT and PE Interval history: Jacobo post successful thrombectomy and PE, thrombolysis. Patient is symptomatically doing better. She has somewhat histrionic with anxiety. She has pain at the left femoral access site. Pressure bandages were removed. There was some blood from the left femoral access site. Area evaluated, and cleaned, with no active bleeding. Objective - Constitutional Vitals: Vital Signs - 12hr 09/28/16 09/29/16 09/29/16 23:30 00:00 00:31 Temperature 99.6 F Pulse Rate 97 H 98 H 97 H Pulse Rate [ From Monitor] Respiratory 25 H 27 H 26 H Rate Blood Pressure 117/72 124/61 128/56 O2 Sat by Pulse 95 93 90 Oximetry 09/29/16 09/29/16 09/29/16 01:00 01:30 02:01 Temperature Pulse Rate 95 H 94 H 92 H Pulse Rate [ From Monitor] Respiratory 24 21 15 Rate Blood Pressure 119/56 113/65 114/68 O2 Sat by Pulse 95 96 99 Oximetry 09/29/16 09/29/16 09/29/16 02:30 03:00 03:30 Temperature Pulse Rate 98 H 96 H 97 H Pulse Rate [ From Monitor] Respiratory 18 24 25 H Rate Blood Pressure 115/67 124/58 125/62 O2 Sat by Pulse 92 93 88 Oximetry 09/29/16 09/29/16 09/29/16 04:00 04:01 04:30 Temperature 99.4 F Pulse Rate 98 H 94 H Pulse Rate [ From Monitor] Respiratory 13 22 Rate Blood Pressure 129/54 144/66 O2 Sat by Pulse 95 97 Oximetry 09/29/16 09/29/16 09/29/16 05:00 05:31 06:00 Temperature Pulse Rate 102 H 98 H 97 H Pulse Rate [ From Monitor] Respiratory 28 H 24 24 Rate Blood Pressure 120/57 101/62 116/59 O2 Sat by Pulse 80 L 96 94 Oximetry 09/29/16 09/29/16 09/29/16 06:30 07:01 07:31 Temperature Pulse Rate 98 H 98 H 97 H Pulse Rate [ From Monitor] Respiratory 20 23 25 H Rate Blood Pressure 100/60 117/59 126/67 O2 Sat by Pulse 94 95 98 Oximetry 09/29/16 09/29/16 09/29/16 08:00 08:01 08:55 Temperature 99.2 F Pulse Rate 95 H Pulse Rate [ From Monitor] Respiratory 25 H Rate Blood Pressure 106/64 O2 Sat by Pulse 96 97 Oximetry 09/29/16 10:17 Temperature Pulse Rate Pulse Rate [ 98 H From Monitor] Respiratory 18 Rate Blood Pressure O2 Sat by Pulse 92 Oximetry General appearance: Present: no acute distress - EENT Eyes: EOM intact ENT: hearing intact - Respiratory Respiratory effort: normal Extremities: normal temperature, normal color - Psychiatric Psychiatric: appropriate mood/affect, cooperative - Labs CBC & Chem 7: 09/29/16 03:45 09/28/16 07:44 Labs: Abnormal lab results 09/28/16 09/28/16 09/29/16 Range/Units 21:15 21:15 03:45 RBC 2.97 L (3.65-5.03) M/mm3 Hgb 7.3 L 7.3 L (10.1-14.3) gm/dl Hct 23.2 L 22.2 L (30.3-42.9) % MCV 78 L (79-97) fl MCH 25 L (28-32) pg RDW 22.0 H (13.2-15.2) % Plt Count 130 L 96 L (140-440) K/mm3 Lymph % (Auto) 10.2 L (13.4-35.0) % Miller % (Auto) 9.5 H (0.0-7.3) % Lymph # 1.1 L (1.2-5.4) K/mm3 Miller # 1.0 H (0.0-0.8) K/mm3 Seg Neutrophils % 79.2 H (40.0-70.0) % Seg Neutrophils # 8.5 H (1.8-7.7) K/mm3 Fibrinogen 158 L (211-480) mg/dl Heparin Anti-Xa Level < 0.10 L (0.3-0.7) U.I./ml
[2016-09-29] MEDS ORDERED: NACL 0.9% 500 ML 500 ML IV ONE (11:45)
[2016-09-29] MEDS: PROTONIX PO SCH (14:41)
--- NOTE | 2016-09-29 16:42 | Vascular Lab Report ---
MISCELLANEOUS VESSEL IDENTIFICATION: COMMENTS ON THE SCAN: The right internal jugular vein was identified and under real-time ultrasound guidance was cannulated. IMPRESSION: Successful ultrasound guided vein cannulation.
--- NOTE | 2016-09-29 17:22 | Progress Note ---
Assessment and Plan Assessment and plan: Patient is a 36 -year-old female with a past medical history hypothyroidism and left leg DVT was on anticoagulant 6 months who presents with a two days history of shortness of breath, right leg pain and right-sided chest pain. The symptoms began two days prior to admission, while she was at work, where worsening of her dyspnea and pain prompted her to come to the emergency room. There, he was diagnosed with pneumonia and placed on Levaquin 500 mg daily and Benzonatate 200 mg TID, which he has been taking for two days with only slight improvement. The right-sided pain is located midway down her ribcage, below the axilla. This pain is sharp, about 10/10 in severity, and worsens with movement and cough. Pressing on the chest does not recreate the pain. She feels that the pain has improved by morphine that she received in the Emergency room. The dyspnea has been severe, and it is difficult for her to walk more than across a room. She states that she feels as though there is a rattling in her chest. At baseline, she experiences dyspnea on exertion and has no history of COPD or other respiratory problem. she denies smoking, using drugs. She denies a previous history of pulmonary embolism. Patient reported that she has had left leg DVT 2 years ago and she was on anticoagulant for 6 months. It was stopped by her physicians. On admission patient was noted to have thrombocytosis therapy. And is was recovering well in the ICU. 1 Pulmonary embolism Status post Successful pulmonary artery thrombolytic catheter placement IVC filter placed today Switch to Eliquis and stop TPA and heparin per vascular 2. Right leg DVT Eliquis/IVC filter warm compresses to the affected leg 3.Acute respiratory failure Likely due to PE burden, CONTINUE supportive pulmonary care, Guest Experience Manager input noted 4. Hypothyroidism We will start on Synthroid 5. Morbid obesity Lifestyle modifications discussed in detail Recommended outpatient evaluation for DIANA 6. Anemia ?Iron deficiency. Expected post thrombosis. Patient will receive packed red blood cell transfusion. 7. Thrombocytopenia Expected post thrombosis From the transferred out to the floor on telemetry. Per vascular patient will need indefinite anticoagulation. The high probability of a clinically significant, sudden or life threatening deterioration of the [Pulmonary, hematology] system(s) required my full and direct attention, intervention and personal management. The aggregate critical care time was [35] minutes. This time is in addition to time spent performing reported procedures but includes the following: [x] Data Review and interpretation [x] Patient assessment and monitoring of vital signs [x] Documentation [x] Medication orders and management History Interval history: Patient seen and examined in no acute distress. No other adverse events reported by nursing staff Hospitalist Physical - Physical exam Narrative exam: VITAL SIGNS: Reviewed. GENERAL: The patient appeared well nourished and normally developed, morbidly obese. Vital signs as documented. HEAD: No signs of head trauma. EYES: Pupils are equal. Extraocular motions intact. EARS: Hearing grossly intact. MOUTH: Oropharynx is normal. NECK: No adenopathy, no JVD. CHEST: Chest with clear breath sounds bilaterally. No wheezes, rales, or rhonchi. CARDIAC: Regular rate and rhythm. S1 and S2, without murmurs, gallops, or rubs. VASCULAR: No Edema. Peripheral pulses normal and equal in all extremities. ABDOMEN: Soft, without detectable tenderness. No sign of distention. No rebound or guarding, and no masses palpated. Bowel Sounds normal. MUSCULOSKELETAL: Wraps in place to lower extremity with Patrice bandage. Good range of motion of all major joints. Extremities without clubbing, cyanosis or edema. NEUROLOGIC EXAM: Alert and oriented x 3. No focal sensory or strength deficits. Speech normal. Follows commands. PSYCHIATRIC: Mood normal. SKIN: No rash or lesions. - Constitutional Vitals: Temp Pulse Resp BP Pulse Ox 98.7 F 98 H 18 106/64 92 09/29/16 12:00 09/29/16 10:17 09/29/16 10:17 09/29/16 08:01 09/29/16 10:17 General appearance: Present: no acute distress Results - Labs CBC & Chem 7: 09/29/16 03:45 09/28/16 07:44 Labs: Laboratory Last Values WBC 10.7 K/mm3 (4.5-11.0) 09/28/16 21:15 RBC 2.97 M/mm3 (3.65-5.03) L 09/28/16 21:15 Hgb 7.3 gm/dl (10.1-14.3) L 09/29/16 03:45 Hct 22.2 % (30.3-42.9) L 09/29/16 03:45 MCV 78 fl (79-97) L 09/28/16 21:15 MCH 25 pg (28-32) L 09/28/16 21:15 MCHC 32 % (30-34) 09/28/16 21:15 RDW 22.0 % (13.2-15.2) H 09/28/16 21:15 Plt Count 96 K/mm3 (140-440) L 09/29/16 03:45 Lymph % (Auto) 10.2 % (13.4-35.0) L 09/28/16 21:15 Centre % (Auto) 9.5 % (0.0-7.3) H 09/28/16 21:15 Eos % (Auto) 0.8 % (0.0-4.3) 09/28/16 21:15 Baso % (Auto) 0.3 % (0.0-1.8) 09/28/16 21:15 Lymph # 1.1 K/mm3 (1.2-5.4) L 09/28/16 21:15 Centre # 1.0 K/mm3 (0.0-0.8) H 09/28/16 21:15 Eos # 0.1 K/mm3 (0.0-0.4) 09/28/16 21:15 Baso # 0.0 K/mm3 (0.0-0.1) 09/28/16 21:15 Add Manual Diff TNR 09/28/16 07:44 Seg Neutrophils % 79.2 % (40.0-70.0) H 09/28/16 21:15 Seg Neutrophils # 8.5 K/mm3 (1.8-7.7) H 09/28/16 21:15 PT 15.7 Sec. (12.2-14.9) H 09/28/16 07:44 INR 1.19 (0.87-1.13) H 09/28/16 07:44 APTT 34.9 Sec. (24.2-36.6) 09/28/16 07:44 Fibrinogen 158 mg/dl (211-480) L 09/28/16 21:15 Heparin Anti-Xa Level < 0.10 U.I./ml (0.3-0.7) L 09/28/16 21:15 Sodium 135 mmol/L (137-145) L 09/28/16 07:44 Potassium 4.3 mmol/L (3.6-5.0) 09/28/16 07:44 Chloride 96.2 mmol/L (98-107) L 09/28/16 07:44 Carbon Dioxide 25 mmol/L (22-30) 09/28/16 07:44 Anion Gap 18 mmol/L 09/28/16 07:44 BUN 16 mg/dL (7-17) 09/28/16 07:44 Creatinine 0.9 mg/dL (0.7-1.2) 09/28/16 07:44 Estimated GFR > 60 ml/min 09/28/16 07:44 BUN/Creatinine Ratio 17.77 % 09/28/16 07:44 Glucose 148 mg/dL (65-100) H 09/28/16 07:44 Calcium 8.5 mg/dL (8.4-10.2) 09/28/16 07:44 Total Bilirubin 1.00 mg/dL (0.1-1.2) 09/27/16 02:18 Direct Bilirubin 0.2 mg/dL (0-0.2) 09/27/16 02:18 Indirect Bilirubin 0.8 mg/dL 09/27/16 02:18 AST 24 units/L (5-40) 09/27/16 02:18 ALT 27 units/L (7-56) 09/27/16 02:18 Alkaline Phosphatase 59 units/L (35-129) 09/27/16 02:18 Troponin T < 0.010 ng/mL (0.00-0.029) 09/27/16 02:18 NT-Pro-B Natriuret Pep 1343 pg/mL (0-450) H 09/27/16 02:18 Total Protein 8.1 g/dL (6.3-8.2) 09/27/16 02:18 Albumin 3.9 g/dL (3.9-5) 09/27/16 02:18 Albumin/Globulin Ratio 0.9 % 09/27/16 02:18 TSH 25.680 mlU/mL (0.270-4.200) H 09/27/16 04:07 Free T4 0.80 ng/dL (0.76-1.46) 09/27/16 04:07 HCG, Qual Negative (Negative) 09/27/16 04:07
[2016-09-29 18:51] LABS: Hemoglobin 6.3 gm/dl (10.1-14.3)
[2016-09-29 19:05] LABS: Hematocrit 19.8 % (30.3-42.9)
[2016-09-29 19:14] LABS: Albumin 3.1 g/dL (3.9-5); Albumin/Globulin Ratio 0.9 %; Bilirubin,Direct 0.7 mg/dL (0-0.2); Bilirubin,Indirect 0.7 mg/dL; Bilirubin,Total 1.4 mg/dL (0.1-1.2); Total Protein 6.4 g/dL (6.3-8.2)
[2016-09-30] MEDS: PROTONIX PO SCH ×3 (00:02→21:58)
[2016-09-30] MEDS: ELIQUIS PO SCH ×3 (00:03→21:57)
[2016-09-30] MEDS ORDERED: NACL 0.9% 250ML 250 ML ONE (01:05)
[2016-09-30] MEDS: SYNTHROID PO SCH (06:54)
[2016-09-30 09:01] LABS: Basophils % (Auto) 0.4 % (0.0-1.8); Eosinophils % (Auto) 2.2 % (0.0-4.3); Hematocrit 21.8 % (30.3-42.9); Hemoglobin 6.9 gm/dl (10.1-14.3); Mean Corpuscular HGB Conc 32 % (30-34); Mean Corpuscular Volume 81 fl (79-97); Platelet Count 151 K/mm3 (140-440); Red Blood Count 2.71 M/mm3 (3.65-5.03); White Blood Count 8.3 K/mm3 (4.5-11.0)
[2016-09-30 09:03] LABS: Mean Corpuscular Hemoglobin 25 pg (28-32); Red Cell Distribution Width 22.1 % (13.2-15.2)
--- NOTE | 2016-09-30 09:08 | Hem/Onc Progress Note ---
Assessment and Plan Platelets have improved. Continue to monitor. Hemoglobin still down but improved. May need more packed RBCs if necessary. Anemia workup ordered pending results Subjective Date of service: 09/30/16 Interval history: Patient feels fair. Shortness of breath has improved. Did receive 1 unit of packed RBCs. No obvious bleeding noted. Tolerating eliquis Objective - Exam Narrative Exam: Mildly short of breath. - Constitutional Vitals: Last Vital Signs Temp 98.7 F 09/30/16 06:00 Pulse 100 H 09/30/16 05:10 Resp 22 09/30/16 06:00 BP 136/69 09/30/16 06:00 Pulse Ox 86 09/30/16 07:54 General appearance: mild distress Performance status: 4-completely disabled - Neck Neck: supple - Respiratory Respiratory: bilateral: diminished - Cardiovascular Rhythm: regular Extremities: abnormal (Patrice bandage) - Gastrointestinal General gastrointestinal: Present: soft, other (urine cloudy) - Labs Lab Results: Laboratory Results - last 24 hr 09/29/16 09/29/16 09/29/16 18:29 18:30 18:30 WBC RBC Hgb 6.3 L Hct 19.8 L* MCV MCH MCHC RDW Plt Count Lymph % (Auto) [place] % (Auto) Eos % (Auto) Baso % (Auto) Lymph # [place] # Eos # Baso # Seg Neutrophils % Seg Neutrophils # Iron Total Bilirubin 1.40 H Direct Bilirubin 0.7 H Indirect Bilirubin 0.7 AST 72 H ALT 26 Alkaline Phosphatase 53 Total Protein 6.4 D Albumin 3.1 L Albumin/Globulin Ratio 0.9 Blood Type A POSITIVE Antibody Screen TNR LAMBERTO Antibody Screen Negative Crossmatch See Detail 09/29/16 09/30/16 Unknown 08:36 WBC 8.3 RBC 2.71 L Hgb 6.9 L Hct 21.8 L MCV 81 D MCH 25 L MCHC 32 RDW 22.1 H Plt Count 151 Lymph % (Auto) 18.3 [place]erry % (Auto) 5.6 Eos % (Auto) 2.2 Baso % (Auto) 0.4 Lymph # 1.5 Ferry # 0.5 Eos # 0.2 Baso # 0.0 Seg Neutrophils % 73.5 H Seg Neutrophils # 6.1 Iron 57 Total Bilirubin Direct Bilirubin Indirect Bilirubin AST ALT Alkaline Phosphatase Total Protein Albumin Albumin/Globulin Ratio Blood Type Antibody Screen LAMBERTO Antibody Screen Crossmatch
[2016-09-30 09:19] LABS: Reticulocyte % 5.51 % (0.78-2.58)
[2016-09-30 09:25] LABS: Anion Gap 16 mmol/L; Blood Urea Nitrogen 14 mg/dL (7-17); Calcium 8.3 mg/dL (8.4-10.2); Carbon Dioxide 28 mmol/L (22-30); Chloride 95.9 mmol/L (98-107); Glucose 145 mg/dL (65-100); Potassium 4.3 mmol/L (3.6-5.0); Sodium 136 mmol/L (137-145)
[2016-09-30] MEDS ORDERED: NACL 0.9% 500 ML 500 ML IV ONE ×2 (09:33→15:00)
[2016-09-30 10:10] LABS: ISTAT Base Excess 3; ISTAT HCO3 27.6; ISTAT PCO2 42.1 (35-45); ISTAT PH 7.424 (7.35-7.45); ISTAT PO2 50 (80-105); ISTAT SO2 85; ISTAT TCO2 29
--- NOTE | 2016-09-30 11:11 | Progress Note ---
Assessment and Plan - Patient Problems (1) Anemia Current Visit: Yes Status: Acute Qualifiers: Anemia type: A Iron deficiency anemia type: I Vitamin B12 deficiency anemia type: V Folate deficiency anemia type: F Bone marrow failure anemia type: B Hemolytic anemia type: H Other causes of anemia: O Chronic kidney disease stage: C Plan to address problem: - Needs work up for anemia.She states that she has not menstruated for a while. - Monitor for bleeding and trend CBC - iron studies sent - will get stool guaiac (pending) - will consult hematology re: Anemia & VTE (2) Bilateral pulmonary embolism Current Visit: Yes Status: Acute Plan to address problem: - s/p EkOS sheath removal - await 2D ECHO report - follow Hypercoagulable work up - She will need life long anticoagulation (on eliquis now) - overall more stable - continue supplemental oxygen to keepn O2 Sats > 94% (3) Deep vein thrombosis (DVT) of right iliofemoral vein Current Visit: Yes Status: Acute Plan to address problem: - as above (4) Obesity (BMI 30-39.9) Current Visit: Yes Status: Acute Plan to address problem: - Lifestyle modifications, exercise on discharge etc counselled - Needs sleep study as out patient - will get ABG to evaluate for hypercapnia also re: hypersomnolence - will deploy empiric BIPAP qhs (refused) (5) Sleep disorder breathing Current Visit: Yes Status: Acute Plan to address problem: - outpatient sleep clinic evaluation - weight loss - BIPAP qhs (6) Discharge planning issues Current Visit: Yes Status: Acute Plan to address problem: - per attending Subjective Date of service: 09/30/16 Principal diagnosis: Acute Hypoxemic Respiratory Failure; VTE s/p EkOS; morbid Obesity Interval history: Seen and examined at bedside; 24 hour events reviewed; nursing and respiratory care staff consulted; no adverse overnight events reported to me; resting peacefully and sitting on side of bed; states that she cannot tolerate BIPAP; feels better; denies acute chest pains or increased SOB; No N/V/F/C Objective Vital Signs - 12hr 09/30/16 09/30/16 09/30/16 00:00 01:26 01:38 Temperature 98.9 F 98.8 F 98.8 F Pulse Rate 102 H 100 H Respiratory 21 22 20 Rate Blood Pressure 104/56 126/75 Blood Pressure 131/63 [Left Arm] O2 Sat by Pulse 92 97 Oximetry 09/30/16 09/30/16 09/30/16 05:10 06:00 07:54 Temperature 98.6 F 98.7 F Pulse Rate 100 H Respiratory 20 22 Rate Blood Pressure 118/78 Blood Pressure 136/69 [Left Arm] O2 Sat by Pulse 94 86 Oximetry 09/30/16 10:40 Temperature 99.5 F Pulse Rate Respiratory 18 Rate Blood Pressure Blood Pressure 134/60 [Left Arm] O2 Sat by Pulse 95 Oximetry Constitutional: no acute distress Eyes: non-icteric ENT: oropharynx moist, other (mallampatti score 4/4) Neck: supple, no JVD, other (short neck) Effort: normal Ascultation: Bilateral: clear, diminished breath sounds Cardiovascular: regular rate and rhythm, other (S1,S2, no murmurs, gallops or rubs) Gastrointestinal: normoactive bowel sounds, soft, non-tender, non-distended Integumentary: normal Extremities: no cyanosis, no edema, pink and warm, pulses normal, no ischemia or petechiae Neurologic: normal mental status, non-focal exam, pupils equal and round, CN II- XII normal Psychiatric: mood appropriate, affect normal CBC and BMP: 10/01/16 12:33 09/30/16 08:36 ABG, PT/INR, D-dimer: ABG POC ABG pH 7.424 (7.35-7.45) 09/30/16 08:08 POC ABG pCO2 42.1 (35-45) 09/30/16 08:08 POC ABG pO2 50 (80-105) L 09/30/16 08:08 POC ABG HCO3 27.6 09/30/16 08:08 POC ABG Total CO2 29 09/30/16 08:08 POC ABG O2 Sat 85 09/30/16 08:08 PT/INR, D-dimer PT 15.7 Sec. (12.2-14.9) H 09/28/16 07:44 INR 1.19 (0.87-1.13) H 09/28/16 07:44 Abnormal lab findings: Abnormal Labs 09/27/16 09/27/16 09/27/16 16:18 16:18 17:38 RBC 3.60 L Hgb 8.8 L Hct 28.7 L MCV MCH 25 L RDW 22.1 H Plt Count Lymph % (Auto) Luce % (Auto) Lymph # Luce # Seg Neutrophils % 79.1 H Seg Neutrophils # Percent Retic PT 15.6 H INR 1.18 H APTT 45.8 H Fibrinogen Heparin Anti-Xa Level 0.20 L POC ABG pO2 Sodium Chloride Glucose Calcium Total Bilirubin Direct Bilirubin AST Albumin Vitamin B12 Crossmatch 09/27/16 09/28/16 09/28/16 17:38 01:43 01:43 RBC 3.62 L Hgb 8.7 L Hct 27.7 L MCV 77 L D MCH 24 L RDW 22.1 H Plt Count Lymph % (Auto) 12.6 L Luce % (Auto) Lymph # Luce # Seg Neutrophils % 78.7 H Seg Neutrophils # 7.8 H Percent Retic PT INR APTT Fibrinogen Heparin Anti-Xa Level 0.10 L POC ABG pO2 Sodium Chloride 96.0 L Glucose 117 H Calcium Total Bilirubin Direct Bilirubin AST Albumin Vitamin B12 Crossmatch 09/28/16 09/28/16 09/28/16 07:44 07:44 07:44 RBC 3.46 L Hgb 8.3 L Hct 26.4 L MCV 76 L MCH 24 L RDW 21.8 H Plt Count Lymph % (Auto) 11.1 L Luce % (Auto) Lymph # 1.0 L Luce # Seg Neutrophils % 80.0 H Seg Neutrophils # Percent Retic PT 15.7 H INR 1.19 H APTT Fibrinogen Heparin Anti-Xa Level < 0.10 L POC ABG pO2 Sodium 135 L Chloride 96.2 L Glucose 148 H Calcium Total Bilirubin Direct Bilirubin AST Albumin Vitamin B12 Crossmatch 09/28/16 09/28/16 09/29/16 21:15 21:15 03:45 RBC 2.97 L Hgb 7.3 L 7.3 L Hct 23.2 L 22.2 L MCV 78 L MCH 25 L RDW 22.0 H Plt Count 130 L 96 L Lymph % (Auto) 10.2 L Luce % (Auto) 9.5 H Lymph # 1.1 L Luce # 1.0 H Seg Neutrophils % 79.2 H Seg Neutrophils # 8.5 H Percent Retic PT INR APTT Fibrinogen 158 L Heparin Anti-Xa Level < 0.10 L POC ABG pO2 Sodium Chloride Glucose Calcium Total Bilirubin Direct Bilirubin AST Albumin Vitamin B12 Crossmatch 09/29/16 09/29/16 09/29/16 18:29 18:30 18:30 RBC Hgb 6.3 L Hct 19.8 L* MCV MCH RDW Plt Count Lymph % (Auto) Luce % (Auto) Lymph # Luce # Seg Neutrophils % Seg Neutrophils # Percent Retic PT INR APTT Fibrinogen Heparin Anti-Xa Level POC ABG pO2 Sodium Chloride Glucose Calcium Total Bilirubin 1.40 H Direct Bilirubin 0.7 H AST 72 H Albumin 3.1 L Vitamin B12 Crossmatch See Detail 09/30/16 09/30/16 09/30/16 08:08 08:36 08:36 RBC Hgb Hct MCV MCH RDW Plt Count Lymph % (Auto) Luce % (Auto) Lymph # Luce # Seg Neutrophils % Seg Neutrophils # Percent Retic 5.51 H PT INR APTT Fibrinogen Heparin Anti-Xa Level POC ABG pO2 50 L Sodium 136 L Chloride 95.9 L Glucose 145 H Calcium 8.3 L Total Bilirubin Direct Bilirubin AST Albumin Vitamin B12 Crossmatch 09/30/16 09/30/16 08:36 08:36 RBC 2.71 L Hgb 6.9 L Hct 21.8 L MCV MCH 25 L RDW 22.1 H Plt Count Lymph % (Auto) Luce % (Auto) Lymph # Luce # Seg Neutrophils % 73.5 H Seg Neutrophils # Percent Retic PT INR APTT Fibrinogen Heparin Anti-Xa Level POC ABG pO2 Sodium Chloride Glucose Calcium Total Bilirubin Direct Bilirubin AST Albumin Vitamin B12 61.10 L Crossmatch
--- NOTE | 2016-09-30 11:12 | Progress Note ---
Assessment and Plan Assessment and plan: Acute submassive Pulmonary embolism Status post Successful pulmonary artery thrombolytic catheter placement, s/p tPA IVC filter placement, Now on Eliquis. She will need indefinite anti-coagulagnition as per vascular surgeon. Right leg DVT Eliquis/IVC filter warm compresses to the affected leg Acute respiratory failure due to PE burden, supportive pulmonary care, Physical Therapy Aid following Hypothyroidism Started on Levoyroxine 75 mcg by mouth daily. Morbid obesity Lifestyle modifications discussed in detail Recommended outpatient evaluation for DIANA Anemia Expected .Hemoglobin 6.9 today. Will transfuse 1 unit PRBC more. She was transfused 1 unit PRBC yesterday. Thrombocytopenia Resolved. Platelet 151 today. Full code status. History Interval history: Less shortness of breath, less chest pain Hospitalist Physical - Physical exam Narrative exam: Gen Appearance: Not in acute distress, Morbidly obese HEENT: normocephalic, atraumatic Neck: Supple,no JVD Lungs: clear to auscultation bilaterally, no crackles or wheezes Heart: S1 and S2 regular, no murmurs or gallop Abdomen: Soft, non tender, non distended, normal bowel sounds, Extremity: Patrice wraps both lower ext, no clubbing or cyanosis Neuro : Awake,alert,oriented x3, No focal neurological signs Psych :calm - Constitutional Vitals: Temp Pulse Resp BP Pulse Ox 99.5 F 100 H 18 134/60 95 09/30/16 10:40 09/30/16 05:10 09/30/16 10:40 09/30/16 10:40 09/30/16 10:40 General appearance: Present: no acute distress Results - Labs CBC & Chem 7: 09/30/16 08:36 09/30/16 08:36 Labs: Laboratory Last Values WBC 8.3 K/mm3 (4.5-11.0) 09/30/16 08:36 RBC 2.71 M/mm3 (3.65-5.03) L 09/30/16 08:36 Hgb 6.9 gm/dl (10.1-14.3) L 09/30/16 08:36 Hct 21.8 % (30.3-42.9) L 09/30/16 08:36 MCV 81 fl (79-97) D 09/30/16 08:36 MCH 25 pg (28-32) L 09/30/16 08:36 MCHC 32 % (30-34) 09/30/16 08:36 RDW 22.1 % (13.2-15.2) H 09/30/16 08:36 Plt Count 151 K/mm3 (140-440) 09/30/16 08:36 Lymph % (Auto) 18.3 % (13.4-35.0) 09/30/16 08:36 Douglas % (Auto) 5.6 % (0.0-7.3) 09/30/16 08:36 Eos % (Auto) 2.2 % (0.0-4.3) 09/30/16 08:36 Baso % (Auto) 0.4 % (0.0-1.8) 09/30/16 08:36 Lymph # 1.5 K/mm3 (1.2-5.4) 09/30/16 08:36 Douglas # 0.5 K/mm3 (0.0-0.8) 09/30/16 08:36 Eos # 0.2 K/mm3 (0.0-0.4) 09/30/16 08:36 Baso # 0.0 K/mm3 (0.0-0.1) 09/30/16 08:36 Add Manual Diff TNR 09/28/16 07:44 Seg Neutrophils % 73.5 % (40.0-70.0) H 09/30/16 08:36 Seg Neutrophils # 6.1 K/mm3 (1.8-7.7) 09/30/16 08:36 Percent Retic 5.51 % (0.78-2.58) H 09/30/16 08:36 PT 15.7 Sec. (12.2-14.9) H 09/28/16 07:44 INR 1.19 (0.87-1.13) H 09/28/16 07:44 APTT 34.9 Sec. (24.2-36.6) 09/28/16 07:44 Fibrinogen 158 mg/dl (211-480) L 09/28/16 21:15 Heparin Anti-Xa Level < 0.10 U.I./ml (0.3-0.7) L 09/28/16 21:15 POC ABG pH 7.424 (7.35-7.45) 09/30/16 08:08 POC ABG pCO2 42.1 (35-45) 09/30/16 08:08 POC ABG pO2 50 (80-105) L 09/30/16 08:08 POC ABG HCO3 27.6 09/30/16 08:08 POC ABG Total CO2 29 09/30/16 08:08 POC ABG O2 Sat 85 09/30/16 08:08 POC ABG Base Excess 3 09/30/16 08:08 FiO2 2.5 % 09/30/16 08:08 Sodium 136 mmol/L (137-145) L 09/30/16 08:36 Potassium 4.3 mmol/L (3.6-5.0) 09/30/16 08:36 Chloride 95.9 mmol/L (98-107) L 09/30/16 08:36 Carbon Dioxide 28 mmol/L (22-30) 09/30/16 08:36 Anion Gap 16 mmol/L 09/30/16 08:36 BUN 14 mg/dL (7-17) 09/30/16 08:36 Creatinine 0.8 mg/dL (0.7-1.2) 09/30/16 08:36 Estimated GFR > 60 ml/min 09/30/16 08:36 BUN/Creatinine Ratio 17.50 % 09/30/16 08:36 Glucose 145 mg/dL (65-100) H 09/30/16 08:36 Calcium 8.3 mg/dL (8.4-10.2) L 09/30/16 08:36 Iron 136 ug/dL (37-170) 09/30/16 08:36 TIBC 364.00 mcg/dL (250-450) 09/30/16 08:36 % Saturation 37.36 % 09/30/16 08:36 Transferrin 260 mg/dl (192-382) 09/30/16 08:36 Ferritin 76.6 ng/mL (13.0-400.0) 09/30/16 08:36 Total Bilirubin 1.40 mg/dL (0.1-1.2) H 09/29/16 18:30 Direct Bilirubin 0.7 mg/dL (0-0.2) H 09/29/16 18:30 Indirect Bilirubin 0.7 mg/dL 09/29/16 18:30 AST 72 units/L (5-40) H 09/29/16 18:30 ALT 26 units/L (7-56) 09/29/16 18:30 Alkaline Phosphatase 53 units/L (35-129) 09/29/16 18:30 Troponin T < 0.010 ng/mL (0.00-0.029) 09/27/16 02:18 NT-Pro-B Natriuret Pep 1343 pg/mL (0-450) H 09/27/16 02:18 Total Protein 6.4 g/dL (6.3-8.2) D 09/29/16 18:30 Albumin 3.1 g/dL (3.9-5) L 09/29/16 18:30 Albumin/Globulin Ratio 0.9 % 09/29/16 18:30 Vitamin B12 61.10 pg/mL (211-911) L 09/30/16 08:36 TSH 25.680 mlU/mL (0.270-4.200) H 09/27/16 04:07 Free T4 0.80 ng/dL (0.76-1.46) 09/27/16 04:07 HCG, Qual Negative (Negative) 09/27/16 04:07 Blood Type A POSITIVE 09/29/16 18:29 Antibody Screen TNR 09/29/16 18:29 LAMBERTO Antibody Screen Negative 09/29/16 18:29 Crossmatch See Detail 09/29/16 18:29
--- NOTE | 2016-09-30 14:13 | Progress Note ---
Assessment and Plan 36-year-old female with severe morbid obesity who present with submassive pulmonary embolism and bilateral iliofemoral deep venous thrombosis status post thrombectomy of the lower extremity deep venous thrombosis and thrombolysis of the pulmonary embolism. Patient tolerated the procedure well. Her breathing has symptomatically improved. Patient has some left groin discomfort. Her legs feel better than when she arrived to the hospital H&H decline, which is expected with AngioJet aspiration thrombectomy. Transfused 1 unit pRBC. H&H 6.7 despite transfusion. Recommend 2 unit pRBC and 1 L IV bolus due to discoloration of urine which may be a combination of heme products from angiojet and hematuria from jones. Patient require anticoagulation indefinitely. We will need Eliquis. Please coordinate with case management to provide patient Eliquis patient fleet administrative assistant program. Appreciate hematology assistance. Consider discontinuation of jones tomorrow. Recommend getting patient OOB at least TID with meals and more tomorrow. Subjective Date of service: 09/30/16 Principal diagnosis: Acute Hypoxemic Respiratory Failure; VTE s/p EkOS; morbid Obesity Interval history: Status post successful thrombectomy and PE, thrombolysis. Patient is symptomatically doing better. Her mental status has improved. She has mild pain at the left femoral access site. Left groin bandage c/d/i. Right IJ site c/d/i. Objective - Constitutional Vitals: Vital Signs - 12hr 09/30/16 09/30/16 09/30/16 05:10 06:00 07:54 Temperature 98.6 F 98.7 F Pulse Rate 100 H Respiratory 20 22 Rate Blood Pressure 118/78 Blood Pressure 136/69 [Left Arm] O2 Sat by Pulse 94 86 Oximetry 09/30/16 09/30/16 10:40 14:00 Temperature 99.5 F Pulse Rate Respiratory 18 Rate Blood Pressure Blood Pressure 134/60 [Left Arm] O2 Sat by Pulse 95 95 Oximetry General appearance: Present: no acute distress - EENT Eyes: EOM intact ENT: hearing intact - Respiratory Respiratory effort: other (on NC ; breathing comfortably) Extremities: normal temperature, normal color - Gastrointestinal General gastrointestinal: Present: soft - Psychiatric Psychiatric: appropriate mood/affect, cooperative - Labs CBC & Chem 7: 09/30/16 08:36 09/30/16 08:36 Labs: Abnormal lab results 07/09/29/16 09/29/16 Range/Units 18:29 18:30 18:30 RBC (3.65-5.03) M/mm3 Hgb 6.3 L (10.1-14.3) gm/dl Hct 19.8 L* (30.3-42.9) % MCH (28-32) pg RDW (13.2-15.2) % Seg Neutrophils % (40.0-70.0) % Percent Retic (0.78-2.58) % POC ABG pO2 (80-105) Sodium (137-145) mmol/L Chloride (98-107) mmol/L Glucose (65-100) mg/dL Calcium (8.4-10.2) mg/dL Total Bilirubin 1.40 H (0.1-1.2) mg/dL Direct Bilirubin 0.7 H (0-0.2) mg/dL AST 72 H (5-40) units/L Albumin 3.1 L (3.9-5) g/dL Vitamin B12 (211-911) pg/mL Crossmatch See Detail 09/30/16 09/30/16 09/30/16 Range/Units 08:08 08:36 08:36 RBC (3.65-5.03) M/mm3 Hgb (10.1-14.3) gm/dl Hct (30.3-42.9) % MCH (28-32) pg RDW (13.2-15.2) % Seg Neutrophils % (40.0-70.0) % Percent Retic 5.51 H (0.78-2.58) % POC ABG pO2 50 L (80-105) Sodium 136 L (137-145) mmol/L Chloride 95.9 L (98-107) mmol/L Glucose 145 H (65-100) mg/dL Calcium 8.3 L (8.4-10.2) mg/dL Total Bilirubin (0.1-1.2) mg/dL Direct Bilirubin (0-0.2) mg/dL AST (5-40) units/L Albumin (3.9-5) g/dL Vitamin B12 (211-911) pg/mL Crossmatch 09/30/16 09/30/16 Range/Units 08:36 08:36 RBC 2.71 L (3.65-5.03) M/mm3 Hgb 6.9 L (10.1-14.3) gm/dl Hct 21.8 L (30.3-42.9) % MCH 25 L (28-32) pg RDW 22.1 H (13.2-15.2) % Seg Neutrophils % 73.5 H (40.0-70.0) % Percent Retic (0.78-2.58) % POC ABG pO2 (80-105) Sodium (137-145) mmol/L Chloride (98-107) mmol/L Glucose (65-100) mg/dL Calcium (8.4-10.2) mg/dL Total Bilirubin (0.1-1.2) mg/dL Direct Bilirubin (0-0.2) mg/dL AST (5-40) units/L Albumin (3.9-5) g/dL Vitamin B12 61.10 L (211-911) pg/mL Crossmatch
[2016-10-01] MEDS: SYNTHROID PO SCH (06:57)
--- NOTE | 2016-10-01 09:26 | Progress Note ---
Assessment and Plan Assessment and plan: Acute submassive Pulmonary embolism Status post Successful pulmonary artery thrombolytic catheter placement, s/p tPA IVC filter placement, Now on Eliquis. She will need indefinite anti-coagulagnition as per vascular surgeon. Right leg DVT Eliquis/IVC filter warm compresses to the affected leg Acute respiratory failure due to PE burden, supportive pulmonary care, Cardiac Rn following Hypothyroidism Started on Levoyroxine 75 mcg by mouth daily. Morbid obesity Lifestyle modifications discussed in detail Recommended outpatient evaluation for DIANA Anemia Expected .Hemoglobin 8.3 today, after total 3 units PRBC. Thrombocytopenia Resolved. Platelet 189 today. Full code status. Disposition: To d/c home in few days. Case management gave discount card for Eliquis to patient. History Interval history: Less shortness of breath, less chest pain, feels better Hospitalist Physical - Physical exam Narrative exam: Gen Appearance: Not in acute distress, Morbidly obese HEENT: normocephalic, atraumatic Neck: Supple,no JVD Lungs: clear to auscultation bilaterally, no crackles or wheezes Heart: S1 and S2 regular, no murmurs or gallop Abdomen: Soft, non tender, non distended, normal bowel sounds, Extremity: Patrice wraps both lower ext, no clubbing or cyanosis Neuro : Awake,alert,oriented x3, No focal neurological signs Psych : normal mood, calm - Constitutional Vitals: Temp Pulse Resp BP Pulse Ox 98.8 F 104 H 18 120/51 97 10/01/16 09:07 10/01/16 08:49 10/01/16 09:07 10/01/16 09:07 10/01/16 09:07 Results - Labs CBC & Chem 7: 10/01/16 12:33 09/30/16 08:36 Labs: Laboratory Last Values WBC 8.3 K/mm3 (4.5-11.0) 09/30/16 08:36 RBC 2.71 M/mm3 (3.65-5.03) L 09/30/16 08:36 Hgb 6.9 gm/dl (10.1-14.3) L 09/30/16 08:36 Hct 21.8 % (30.3-42.9) L 09/30/16 08:36 MCV 81 fl (79-97) D 09/30/16 08:36 MCH 25 pg (28-32) L 09/30/16 08:36 MCHC 32 % (30-34) 09/30/16 08:36 RDW 22.1 % (13.2-15.2) H 09/30/16 08:36 Plt Count 151 K/mm3 (140-440) 09/30/16 08:36 Lymph % (Auto) 18.3 % (13.4-35.0) 09/30/16 08:36 Howell % (Auto) 5.6 % (0.0-7.3) 09/30/16 08:36 Eos % (Auto) 2.2 % (0.0-4.3) 09/30/16 08:36 Baso % (Auto) 0.4 % (0.0-1.8) 09/30/16 08:36 Lymph # 1.5 K/mm3 (1.2-5.4) 09/30/16 08:36 Howell # 0.5 K/mm3 (0.0-0.8) 09/30/16 08:36 Eos # 0.2 K/mm3 (0.0-0.4) 09/30/16 08:36 Baso # 0.0 K/mm3 (0.0-0.1) 09/30/16 08:36 Add Manual Diff TNR 09/28/16 07:44 Seg Neutrophils % 73.5 % (40.0-70.0) H 09/30/16 08:36 Seg Neutrophils # 6.1 K/mm3 (1.8-7.7) 09/30/16 08:36 Percent Retic 5.51 % (0.78-2.58) H 09/30/16 08:36 PT 15.7 Sec. (12.2-14.9) H 09/28/16 07:44 INR 1.19 (0.87-1.13) H 09/28/16 07:44 APTT 34.9 Sec. (24.2-36.6) 09/28/16 07:44 Fibrinogen 158 mg/dl (211-480) L 09/28/16 21:15 Heparin Anti-Xa Level < 0.10 U.I./ml (0.3-0.7) L 09/28/16 21:15 POC ABG pH 7.424 (7.35-7.45) 09/30/16 08:08 POC ABG pCO2 42.1 (35-45) 09/30/16 08:08 POC ABG pO2 50 (80-105) L 09/30/16 08:08 POC ABG HCO3 27.6 09/30/16 08:08 POC ABG Total CO2 29 09/30/16 08:08 POC ABG O2 Sat 85 09/30/16 08:08 POC ABG Base Excess 3 09/30/16 08:08 FiO2 2.5 % 09/30/16 08:08 Sodium 136 mmol/L (137-145) L 09/30/16 08:36 Potassium 4.3 mmol/L (3.6-5.0) 09/30/16 08:36 Chloride 95.9 mmol/L (98-107) L 09/30/16 08:36 Carbon Dioxide 28 mmol/L (22-30) 09/30/16 08:36 Anion Gap 16 mmol/L 09/30/16 08:36 BUN 14 mg/dL (7-17) 09/30/16 08:36 Creatinine 0.8 mg/dL (0.7-1.2) 09/30/16 08:36 Estimated GFR > 60 ml/min 09/30/16 08:36 BUN/Creatinine Ratio 17.50 % 09/30/16 08:36 Glucose 145 mg/dL (65-100) H 09/30/16 08:36 Calcium 8.3 mg/dL (8.4-10.2) L 09/30/16 08:36 Iron 136 ug/dL (37-170) 09/30/16 08:36 TIBC 364.00 mcg/dL (250-450) 09/30/16 08:36 % Saturation 37.36 % 09/30/16 08:36 Transferrin 260 mg/dl (192-382) 09/30/16 08:36 Ferritin 76.6 ng/mL (13.0-400.0) 09/30/16 08:36 Total Bilirubin 1.40 mg/dL (0.1-1.2) H 09/29/16 18:30 Direct Bilirubin 0.7 mg/dL (0-0.2) H 09/29/16 18:30 Indirect Bilirubin 0.7 mg/dL 09/29/16 18:30 AST 72 units/L (5-40) H 09/29/16 18:30 ALT 26 units/L (7-56) 09/29/16 18:30 Alkaline Phosphatase 53 units/L (35-129) 09/29/16 18:30 Troponin T < 0.010 ng/mL (0.00-0.029) 09/27/16 02:18 NT-Pro-B Natriuret Pep 1343 pg/mL (0-450) H 09/27/16 02:18 Total Protein 6.4 g/dL (6.3-8.2) D 09/29/16 18:30 Albumin 3.1 g/dL (3.9-5) L 09/29/16 18:30 Albumin/Globulin Ratio 0.9 % 09/29/16 18:30 Vitamin B12 61.10 pg/mL (211-911) L 09/30/16 08:36 Folate 13.67 ng/mL (7.3-26.0) 09/30/16 08:36 TSH 25.680 mlU/mL (0.270-4.200) H 09/27/16 04:07 Free T4 0.80 ng/dL (0.76-1.46) 09/27/16 04:07 HCG, Qual Negative (Negative) 09/27/16 04:07 Blood Type A POSITIVE 09/29/16 18:29 Antibody Screen TNR 09/29/16 18:29 LAMBERTO Antibody Screen Negative 09/29/16 18:29 Crossmatch See Detail 09/29/16 18:29
[2016-10-01] MEDS: ELIQUIS PO SCH ×2 (09:56→22:16)
[2016-10-01] MEDS: PROTONIX PO SCH (09:56)
[2016-10-01] MEDS: NORCO 5/325 PO PRN (09:57)
--- NOTE | 2016-10-01 10:44 | Hem/Onc Progress Note ---
Assessment and Plan 1- massive PE/DVT, s/p thrombolysis. on eliquis. hypercoagulable state work up pending 2- anemia, improving 3- Thrombocytopenia resolved. Subjective Date of service: 10/01/16 Interval history: feels better. breathing is better Objective - Constitutional Vitals: Last Vital Signs Temp 98.8 F 10/01/16 09:07 Pulse 104 H 10/01/16 08:49 Resp 18 10/01/16 09:07 BP 120/51 10/01/16 09:07 Pulse Ox 97 10/01/16 09:07 Pain Intensity (0-10): 0/10 General appearance: no acute distress - Respiratory Respiratory: bilateral: CTA - Cardiovascular Rhythm: regular Heart Sounds: Present: S1 & S2 - Gastrointestinal General gastrointestinal: Present: soft, other (obese) - Labs Lab Results: Laboratory Results - last 24 hr 09/29/16 09/30/16 18:29 08:36 Folate 13.67 Blood Type A POSITIVE Antibody Screen TNR LAMBERTO Antibody Screen Negative Crossmatch See Detail
[2016-10-01 13:41] LABS: Basophils % (Auto) 0.6 % (0.0-1.8); Hemoglobin 8.3 gm/dl (10.1-14.3); Mean Corpuscular HGB Conc 33 % (30-34); Mean Corpuscular Hemoglobin 27 pg (28-32); Mean Corpuscular Volume 81 fl (79-97); Platelet Count 189 K/mm3 (140-440); White Blood Count 9.7 K/mm3 (4.5-11.0)
[2016-10-01 13:51] LABS: Red Cell Distribution Width 20.9 % (13.2-15.2)
--- NOTE | 2016-10-01 15:51 | Progress Note ---
Assessment and Plan - Patient Problems (1) Anemia Status: Acute Qualifiers: Anemia type: A Iron deficiency anemia type: I Vitamin B12 deficiency anemia type: V Folate deficiency anemia type: F Bone marrow failure anemia type: B Hemolytic anemia type: H Other causes of anemia: O Chronic kidney disease stage: C Plan to address problem: - continue work up for anemia.She states that she has not menstruated for a while. - Monitor for bleeding and trend CBC - iron studies sent - will get stool guaiac (pending) - hematology consulted (2) Bilateral pulmonary embolism Status: Acute Plan to address problem: - s/p EkOS sheath removal - follow 2D ECHO report - follow Hypercoagulable work up - She will need life long anticoagulation (on eliquis now) - overall more stable - continue supplemental oxygen to keep O2 Sats > 94% (3) Deep vein thrombosis (DVT) of right iliofemoral vein Status: Acute Plan to address problem: - as above (4) Obesity (BMI 30-39.9) Status: Acute Plan to address problem: - Lifestyle modifications, exercise on discharge etc counselled - Needs sleep study as out patient - will get ABG to evaluate for hypercapnia also re: hypersomnolence - will deploy empiric BIPAP qhs (refused) (5) Sleep disorder breathing Status: Acute Plan to address problem: - outpatient sleep clinic evaluation - weight loss - continue empiric BIPAP qhs (6) Discharge planning issues Status: Acute Plan to address problem: - per attending Subjective Date of service: 10/01/16 Principal diagnosis: Acute Hypoxemic Respiratory Failure; VTE s/p EkOS; morbid Obesity Interval history: Seen and examined at bedside; 24 hour events reviewed; nursing and respiratory care staff consulted; no adverse overnight events reported to me; resting peacefully in bed; denies gross bleeding; denies acute chest pains or increased SOB Objective Vital Signs - 12hr 10/01/16 10/01/16 10/01/16 04:35 08:49 09:07 Temperature 98.3 F 98.8 F Pulse Rate 104 H Respiratory 25 H 18 Rate Blood Pressure 127/60 120/51 [Left Arm] O2 Sat by Pulse 90 97 Oximetry 10/01/16 10/01/16 10:00 12:59 Temperature 98.8 F Pulse Rate Respiratory 18 18 Rate Blood Pressure 140/66 [Left Arm] O2 Sat by Pulse 97 92 Oximetry Constitutional: no acute distress Eyes: non-icteric ENT: oropharynx moist, other (mallampatti score 4/4) Neck: supple, no JVD, other (short neck) Effort: normal Ascultation: Bilateral: clear, diminished breath sounds Cardiovascular: regular rate and rhythm, other (S1,S2, no murmurs, gallops or rubs) Gastrointestinal: normoactive bowel sounds, soft, non-tender, non-distended Integumentary: normal Extremities: no cyanosis, no edema, pink and warm, pulses normal, no ischemia or petechiae Neurologic: normal mental status, non-focal exam, pupils equal and round, CN II- XII normal Psychiatric: mood appropriate, affect normal CBC and BMP: 10/02/16 06:05 09/30/16 08:36 ABG, PT/INR, D-dimer: ABG POC ABG pH 7.424 (7.35-7.45) 09/30/16 08:08 POC ABG pCO2 42.1 (35-45) 09/30/16 08:08 POC ABG pO2 50 (80-105) L 09/30/16 08:08 POC ABG HCO3 27.6 09/30/16 08:08 POC ABG Total CO2 29 09/30/16 08:08 POC ABG O2 Sat 85 09/30/16 08:08 PT/INR, D-dimer PT 15.7 Sec. (12.2-14.9) H 09/28/16 07:44 INR 1.19 (0.87-1.13) H 09/28/16 07:44 Abnormal lab findings: Abnormal Labs 09/27/16 09/27/16 09/27/16 16:18 16:18 17:38 RBC 3.60 L Hgb 8.8 L Hct 28.7 L MCV MCH 25 L RDW 22.1 H Plt Count Lymph % (Auto) [place] % (Auto) Lymph # [place] # Seg Neutrophils % 79.1 H Seg Neutrophils # Percent Retic PT 15.6 H INR 1.18 H APTT 45.8 H Fibrinogen Heparin Anti-Xa Level 0.20 L POC ABG pO2 Sodium Chloride Glucose Calcium Total Bilirubin Direct Bilirubin AST Albumin Vitamin B12 Crossmatch 09/27/16 09/28/16 09/28/16 17:38 01:43 01:43 RBC 3.62 L Hgb 8.7 L Hct 27.7 L MCV 77 L D MCH 24 L RDW 22.1 H Plt Count Lymph % (Auto) 12.6 L [place] % (Auto) Lymph # [place] # Seg Neutrophils % 78.7 H Seg Neutrophils # 7.8 H Percent Retic PT INR APTT Fibrinogen Heparin Anti-Xa Level 0.10 L POC ABG pO2 Sodium Chloride 96.0 L Glucose 117 H Calcium Total Bilirubin Direct Bilirubin AST Albumin Vitamin B12 Crossmatch 09/28/16 09/28/16 09/28/16 07:44 07:44 07:44 RBC 3.46 L Hgb 8.3 L Hct 26.4 L MCV 76 L MCH 24 L RDW 21.8 H Plt Count Lymph % (Auto) 11.1 L [place] % (Auto) Lymph # 1.0 L [place] # Seg Neutrophils % 80.0 H Seg Neutrophils # Percent Retic PT 15.7 H INR 1.19 H APTT Fibrinogen Heparin Anti-Xa Level < 0.10 L POC ABG pO2 Sodium 135 L Chloride 96.2 L Glucose 148 H Calcium Total Bilirubin Direct Bilirubin AST Albumin Vitamin B12 Crossmatch 09/28/16 09/28/16 09/29/16 21:15 21:15 03:45 RBC 2.97 L Hgb 7.3 L 7.3 L Hct 23.2 L 22.2 L MCV 78 L MCH 25 L RDW 22.0 H Plt Count 130 L 96 L Lymph % (Auto) 10.2 L [place] % (Auto) 9.5 H Lymph # 1.1 L [place] # 1.0 H Seg Neutrophils % 79.2 H Seg Neutrophils # 8.5 H Percent Retic PT INR APTT Fibrinogen 158 L Heparin Anti-Xa Level < 0.10 L POC ABG pO2 Sodium Chloride Glucose Calcium Total Bilirubin Direct Bilirubin AST Albumin Vitamin B12 Crossmatch 09/29/16 09/29/16 09/29/16 18:29 18:30 18:30 RBC Hgb 6.3 L Hct 19.8 L* MCV MCH RDW Plt Count Lymph % (Auto) [place] % (Auto) Lymph # [place] # Seg Neutrophils % Seg Neutrophils # Percent Retic PT INR APTT Fibrinogen Heparin Anti-Xa Level POC ABG pO2 Sodium Chloride Glucose Calcium Total Bilirubin 1.40 H Direct Bilirubin 0.7 H AST 72 H Albumin 3.1 L Vitamin B12 Crossmatch See Detail 09/30/16 09/30/16 09/30/16 08:08 08:36 08:36 RBC Hgb Hct MCV MCH RDW Plt Count Lymph % (Auto) [place] % (Auto) Lymph # [place] # Seg Neutrophils % Seg Neutrophils # Percent Retic 5.51 H PT INR APTT Fibrinogen Heparin Anti-Xa Level POC ABG pO2 50 L Sodium 136 L Chloride 95.9 L Glucose 145 H Calcium 8.3 L Total Bilirubin Direct Bilirubin AST Albumin Vitamin B12 Crossmatch 09/30/16 09/30/16 10/01/16 08:36 08:36 12:33 RBC 2.71 L 3.10 L Hgb 6.9 L 8.3 L Hct 21.8 L 25.0 L MCV MCH 25 L 27 L RDW 22.1 H 20.9 H Plt Count Lymph % (Auto) [place] % (Auto) Lymph # [place] # Seg Neutrophils % 73.5 H 77.6 H Seg Neutrophils # Percent Retic PT INR APTT Fibrinogen Heparin Anti-Xa Level POC ABG pO2 Sodium Chloride Glucose Calcium Total Bilirubin Direct Bilirubin AST Albumin Vitamin B12 61.10 L Crossmatch
[2016-10-02] MEDS: TESSALON PERLES PO PRN ×2 (03:37→12:56)
[2016-10-02] MEDS: SYNTHROID PO SCH (06:30)
[2016-10-02 07:08] LABS: Hematocrit 24.4 % (30.3-42.9); Mean Corpuscular HGB Conc 33 % (30-34); Mean Corpuscular Hemoglobin 27 pg (28-32); Mean Corpuscular Volume 81 fl (79-97); Platelet Count 169 K/mm3 (140-440); Red Blood Count 3.01 M/mm3 (3.65-5.03); White Blood Count 7.8 K/mm3 (4.5-11.0)
[2016-10-02 07:09] LABS: Red Cell Distribution Width 21.6 % (13.2-15.2)
[2016-10-02 09:38] LABS: Basophils % (Manual) 0 % (0.0-1.8); Blastocytes % (Manual) 0 %
[2016-10-02 09:45] LABS: Anisocytosis 1+; Diff Status Complete; Platelet Estimate Consistent w Auto
[2016-10-02] MEDS ORDERED: PROTONIX PO SCH (10:00)
[2016-10-02] MEDS: ELIQUIS PO SCH (10:56)
--- NOTE | 2016-10-02 10:56 | Discharge Summary ---
Providers - Providers Date of Admission: 09/27/16 09:33 Date of discharge: 10/02/16 Attending physician: KISHA OWENS MD 09/27/16 10:47 Consult to Physician [CONS] Stat Consulting Provider: BITA AGUILAR Reason For Exam: central PE Place consult to:: VASC Notified:: Y If yes, spoke with:: DR CORONEL Time called:: 11:15 09/27/16 17:03 Consult to Physician [CONS] Routine Consulting Provider: RL LADD Reason For Exam: BILATERAL PE Place consult to:: project intern cc Notified:: y Was contact made?: Yes Time called:: 17:00 Comment:: DR OWENS SPOKE WITH 09/29/16 08:00 Consult to Physician [CONS] Routine Consulting Provider: JAKOB REARDON Reason For Exam: 2 prior PE and large DVTs ; need eliquis for life Place consult to:: Dr Reardon Notified:: answering service Phone number called:: [phone] Was contact made?: Yes If yes, spoke with:: Alexander Time called:: 08:00 Primary care physician: MENDER HAND Hospitalization Reason for admission: CHEST PAIN Condition: Stable Hospital course: Patient is a 36 -year-old female with a past medical history hypothyroidism and left leg DVT was on anticoagulant 6 months who presents with a two days history of shortness of breath, right leg pain and right-sided chest pain. The symptoms began two days prior to admission, while she was at work, where worsening of her dyspnea and pain prompted her to come to the emergency room. There, he was diagnosed with pneumonia and placed on Levaquin 500 mg daily and Benzonatate 200 mg TID, which he has been taking for two days with only slight improvement. The right-sided pain is located midway down her ribcage, below the axilla. This pain is sharp, about 10/10 in severity, and worsens with movement and cough. Pressing on the chest does not recreate the pain. She feels that the pain has improved by morphine that she received in the Emergency room. The dyspnea has been severe, and it is difficult for her to walk more than across a room. She states that she feels as though there is a rattling in her chest. At baseline, she experiences dyspnea on exertion and has no history of COPD or other respiratory problem. she denies smoking, using drugs. She denies a previous history of pulmonary embolism. Patient reported that she has had left leg DVT 2 years ago and she was on anticoagulant for 6 months. It was stopped by her physicians. On admission patient was noted to have thrombocytosis therapy. With mild drop in hemoglobin which is suspected. Patient received 3 units packed red blood cell transfusion hematology was consulted due to thrombocytopenia and anemia this appears to be iron deficiency trauma side pain and improve patient will be followed up with them outpatient patient was also started on iron sulfate. Side effects of all medications were discussed in detail with the patient. Patient is also had IVC filter place. Hemoglobin is 8 who recommended outpatient repeat she verbalized understanding and she did have compression stockings to bilateral lower extremities with good improvement. I have also recommended outpatient evaluation by Pulmonary to evaluate for Obesity hypoventilation syndrome. She was started on synthroid and will follow outpatient for re-evaluation and further work up of thyroid Discharge Diagnosis. 1. Pulmonary embolism 2. Right leg DVT 3. Acute respiratory failure 4. Hypothyroidism 5. Morbid obesity 6. Anemia. Iron deficiency 7. Thrombocytopenia Disposition: DC-01 TO HOME OR SELFCARE Time spent for discharge: 35 mins Core Measure Documentation - Palliative Care Palliative Care/ Comfort Measures: Not Applicable - Core Measures Any of the following diagnoses?: DVT/PE - VTE Discharge Requirements Deep Vein Thrombosis/Pulmonary Embolism Present on Admission: Yes Has pt received <5 days of overlap therapy or INR<2.0: Yes Anticoagulant overlap therapy prescribed at discharge: Yes Exam - Physical Exam Narrative exam: VITAL SIGNS: Reviewed. GENERAL: The patient appeared well nourished and normally developed, morbidly obese. Vital signs as documented. HEAD: No signs of head trauma. EYES: Pupils are equal. Extraocular motions intact. EARS: Hearing grossly intact. MOUTH: Oropharynx is normal. NECK: No adenopathy, no JVD. CHEST: Chest with clear breath sounds bilaterally. No wheezes, rales, or rhonchi. CARDIAC: Regular rate and rhythm. S1 and S2, without murmurs, gallops, or rubs. VASCULAR: Trace,Edema. Peripheral pulses normal and equal in all extremities. ABDOMEN: Soft, without detectable tenderness. No sign of distention. No rebound or guarding, and no masses palpated. Bowel Sounds normal. MUSCULOSKELETAL: Good range of motion of all major joints. Extremities without clubbing, cyanosis. Trace bilateral pitting edema. NEUROLOGIC EXAM: Alert and oriented x 3. No focal sensory or strength deficits. Speech normal. Follows commands. PSYCHIATRIC: Mood normal. SKIN: No rash or lesions. - Constitutional Vitals: Temp Pulse Resp BP Pulse Ox 97.5 F L 98 H 20 135/71 98 10/02/16 08:44 10/02/16 08:44 10/02/16 08:44 10/02/16 08:44 10/02/16 08:44 Plan Activity: advance as tolerated, fall precautions Diet: low fat, low salt Special Instructions: record daily weights, record daily BP diary Additional Instructions: repeat H/H with pcp or track laying supervisor in 2-3 days. Repeat tsh,free t4 in 4 weeks Follow up with: PRIMARY CAREMD [Primary Care Provider] - 3-5 Days ROMAN BROWN MD [Staff Physician] - 7 Days JAKOB REARDON MD [Staff Physician] - 7 Days HANG SULLIVAN MD [Staff Physician] - 7 Days Prescriptions: Famotidine [Pepcid] 40 mg PO QHS #30 tablet Apixaban [Eliquis] 10 mg PO Q12HR 4 Days Apixaban [Eliquis] 5 mg PO Q12HR #60 tablet Cyanocobalamin (Vitamin B-12) [Vitamin B-12] 1,000 mcg PO DAILY #30 tablet.er Docusate Sodium [Colace] 100 mg PO BID PRN #30 capsule PRN Reason: Constipation Ferrous Sulfate [Feosol 325 MG tab] 325 mg PO BID #60 tablet Levothyroxine [Synthroid] 75 mcg PO DAILY@0600 #30 tablet
--- NOTE | 2016-10-02 15:28 | Progress Note ---
Assessment and Plan - Patient Problems (1) Anemia Status: Acute Qualifiers: Anemia type: A Iron deficiency anemia type: I Vitamin B12 deficiency anemia type: V Folate deficiency anemia type: F Bone marrow failure anemia type: B Hemolytic anemia type: H Other causes of anemia: O Chronic kidney disease stage: C Plan to address problem: - normocytic - continue work up for anemia.She states that she has not menstruated for a while. - Monitor for bleeding and trend CBC - iron studies sent - stool guaiac negative - hematology consulted (2) Bilateral pulmonary embolism Status: Acute Plan to address problem: - s/p EkOS sheath removal - follow 2D ECHO report - follow Hypercoagulable work up - She will need life long anticoagulation (on eliquis now) - overall more stable - continue supplemental oxygen to keep O2 Sats > 94% (3) Deep vein thrombosis (DVT) of right iliofemoral vein Status: Acute Plan to address problem: - as above (4) Obesity (BMI 30-39.9) Status: Acute Plan to address problem: - Lifestyle modifications, exercise on discharge etc counselled - Needs sleep study as out patient - will get ABG to evaluate for hypercapnia also re: hypersomnolence - will deploy empiric BIPAP qhs (refused earlier) (5) Sleep disorder breathing Status: Acute Plan to address problem: - outpatient sleep clinic evaluation - weight loss - empiric BIPAP qhs (6) Discharge planning issues Status: Acute Plan to address problem: - per attending Subjective Date of service: 10/02/16 Principal diagnosis: Acute Hypoxemic Respiratory Failure; VTE s/p EkOS; morbid Obesity Interval history: Seen and examined at bedside; 24 hour events reviewed; nursing and respiratory care staff consulted; no adverse overnight events reported to me; no new issues ; no gross bleeding; will be given outpatient pulmonary f/up instructions at discharge Objective Vital Signs - 12hr 10/02/16 10/02/16 10/02/16 05:02 08:44 11:13 Temperature 97.8 F 97.5 F L Pulse Rate [ 90 98 H Left Radial] Respiratory 20 20 Rate Blood Pressure 148/71 135/71 [Left Arm] O2 Sat by Pulse 98 98 94 Oximetry Constitutional: no acute distress Eyes: non-icteric ENT: oropharynx moist, other (mallampatti score 4/4) Neck: supple, no JVD, other (short neck) Effort: normal Ascultation: Bilateral: clear, diminished breath sounds Cardiovascular: regular rate and rhythm, other (S1,S2, no murmurs, gallops or rubs) Gastrointestinal: normoactive bowel sounds, soft, non-tender, non-distended Integumentary: normal Extremities: no cyanosis, no edema, pink and warm, pulses normal, no ischemia or petechiae Neurologic: normal mental status, non-focal exam, pupils equal and round, CN II- XII normal Psychiatric: mood appropriate, affect normal CBC and BMP: 10/02/16 06:05 09/30/16 08:36 ABG, PT/INR, D-dimer: ABG POC ABG pH 7.424 (7.35-7.45) 09/30/16 08:08 POC ABG pCO2 42.1 (35-45) 09/30/16 08:08 POC ABG pO2 50 (80-105) L 09/30/16 08:08 POC ABG HCO3 27.6 09/30/16 08:08 POC ABG Total CO2 29 09/30/16 08:08 POC ABG O2 Sat 85 09/30/16 08:08 PT/INR, D-dimer PT 15.7 Sec. (12.2-14.9) H 09/28/16 07:44 INR 1.19 (0.87-1.13) H 09/28/16 07:44 Abnormal lab findings: Abnormal Labs 09/27/16 09/27/16 09/27/16 16:18 16:18 17:38 RBC 3.60 L Hgb 8.8 L Hct 28.7 L MCV MCH 25 L RDW 22.1 H Plt Count Lymph % (Auto) [place] % (Auto) Lymph # [place] # Seg Neutrophils % 79.1 H Seg Neuts % (Manual) Seg Neutrophils # Percent Retic PT 15.6 H INR 1.18 H APTT 45.8 H Fibrinogen Heparin Anti-Xa Level 0.20 L POC ABG pO2 Sodium Chloride Glucose Calcium Total Bilirubin Direct Bilirubin AST Albumin Vitamin B12 Crossmatch 09/27/16 09/28/16 09/28/16 17:38 01:43 01:43 RBC 3.62 L Hgb 8.7 L Hct 27.7 L MCV 77 L D MCH 24 L RDW 22.1 H Plt Count Lymph % (Auto) 12.6 L [place] % (Auto) Lymph # [place] # Seg Neutrophils % 78.7 H Seg Neuts % (Manual) Seg Neutrophils # 7.8 H Percent Retic PT INR APTT Fibrinogen Heparin Anti-Xa Level 0.10 L POC ABG pO2 Sodium Chloride 96.0 L Glucose 117 H Calcium Total Bilirubin Direct Bilirubin AST Albumin Vitamin B12 Crossmatch 09/28/16 09/28/16 09/28/16 07:44 07:44 07:44 RBC 3.46 L Hgb 8.3 L Hct 26.4 L MCV 76 L MCH 24 L RDW 21.8 H Plt Count Lymph % (Auto) 11.1 L [place] % (Auto) Lymph # 1.0 L [place] # Seg Neutrophils % 80.0 H Seg Neuts % (Manual) Seg Neutrophils # Percent Retic PT 15.7 H INR 1.19 H APTT Fibrinogen Heparin Anti-Xa Level < 0.10 L POC ABG pO2 Sodium 135 L Chloride 96.2 L Glucose 148 H Calcium Total Bilirubin Direct Bilirubin AST Albumin Vitamin B12 Crossmatch 09/28/16 09/28/16 09/29/16 21:15 21:15 03:45 RBC 2.97 L Hgb 7.3 L 7.3 L Hct 23.2 L 22.2 L MCV 78 L MCH 25 L RDW 22.0 H Plt Count 130 L 96 L Lymph % (Auto) 10.2 L [place] % (Auto) 9.5 H Lymph # 1.1 L [place] # 1.0 H Seg Neutrophils % 79.2 H Seg Neuts % (Manual) Seg Neutrophils # 8.5 H Percent Retic PT INR APTT Fibrinogen 158 L Heparin Anti-Xa Level < 0.10 L POC ABG pO2 Sodium Chloride Glucose Calcium Total Bilirubin Direct Bilirubin AST Albumin Vitamin B12 Crossmatch 09/29/16 09/29/16 09/29/16 18:29 18:30 18:30 RBC Hgb 6.3 L Hct 19.8 L* MCV MCH RDW Plt Count Lymph % (Auto) [place] % (Auto) Lymph # [place] # Seg Neutrophils % Seg Neuts % (Manual) Seg Neutrophils # Percent Retic PT INR APTT Fibrinogen Heparin Anti-Xa Level POC ABG pO2 Sodium Chloride Glucose Calcium Total Bilirubin 1.40 H Direct Bilirubin 0.7 H AST 72 H Albumin 3.1 L Vitamin B12 Crossmatch See Detail 09/30/16 09/30/16 09/30/16 08:08 08:36 08:36 RBC Hgb Hct MCV MCH RDW Plt Count Lymph % (Auto) [place] % (Auto) Lymph # [place] # Seg Neutrophils % Seg Neuts % (Manual) Seg Neutrophils # Percent Retic 5.51 H PT INR APTT Fibrinogen Heparin Anti-Xa Level POC ABG pO2 50 L Sodium 136 L Chloride 95.9 L Glucose 145 H Calcium 8.3 L Total Bilirubin Direct Bilirubin AST Albumin Vitamin B12 Crossmatch 09/30/16 09/30/16 10/01/16 08:36 08:36 12:33 RBC 2.71 L 3.10 L Hgb 6.9 L 8.3 L Hct 21.8 L 25.0 L MCV MCH 25 L 27 L RDW 22.1 H 20.9 H Plt Count Lymph % (Auto) [place] % (Auto) Lymph # [place] # Seg Neutrophils % 73.5 H 77.6 H Seg Neuts % (Manual) Seg Neutrophils # Percent Retic PT INR APTT Fibrinogen Heparin Anti-Xa Level POC ABG pO2 Sodium Chloride Glucose Calcium Total Bilirubin Direct Bilirubin AST Albumin Vitamin B12 61.10 L Crossmatch 10/02/16 06:05 RBC 3.01 L Hgb 8.0 L Hct 24.4 L MCV MCH 27 L RDW 21.6 H Plt Count Lymph % (Auto) [place] % (Auto) Lymph # [place] # Seg Neutrophils % Seg Neuts % (Manual) 75.0 H Seg Neutrophils # Percent Retic PT INR APTT Fibrinogen Heparin Anti-Xa Level POC ABG pO2 Sodium Chloride Glucose Calcium Total Bilirubin Direct Bilirubin AST Albumin Vitamin B12 Crossmatch
[2016-10-02 15:56] VITALS: BP 140/71
[2016-10-03 17:12] LABS: Heparin-Induced Platelet Antib Negative (Negative); Unfractionated Heparin Negative (Negative)
[2016-10-06] MEDS ORDERED: ELIQUIS PO SCH (10:00)
== END 2016-10-02 15:57 | disposition home or self-care (01) | DRG 277 ==
LOC: ED 00:39 → 3A 09:33 → 4A 11:09 → CC1 12:38 → 4A 09-29 18:12
PROVIDERS: ADMIT Internal Medicine; ATTEND Internal Medicine
PROC: 3E06317 Introduction of Other Thrombolytic into Central Artery, Percutaneous Approach (ICD-10-PCS; principal; 2016-09-27)
PROC: B31S1ZZ Fluoroscopy of Right Pulmonary Artery using Low Osmolar Contrast (ICD-10-PCS; principal; 2016-09-27)
PROC: B31T1ZZ Fluoroscopy of Left Pulmonary Artery using Low Osmolar Contrast (ICD-10-PCS; principal; 2016-09-27)
PROC: 02HR33Z Insertion of Infusion Device into Left Pulmonary Artery, Percutaneous Approach (ICD-10-PCS; 2016-09-27)
PROC: 02HQ33Z Insertion of Infusion Device into Right Pulmonary Artery, Percutaneous Approach (ICD-10-PCS; 2016-09-27)
PROC: 06C03ZZ Extirpation of Matter from Inferior Vena Cava, Percutaneous Approach (ICD-10-PCS; 2016-09-28)
PROC: 06703ZZ Dilation of Inferior Vena Cava, Percutaneous Approach (ICD-10-PCS; 2016-09-28)
PROC: 06CD3ZZ Extirpation of Matter from Left Common Iliac Vein, Percutaneous Approach (ICD-10-PCS; 2016-09-28)
PROC: 06CC3ZZ Extirpation of Matter from Right Common Iliac Vein, Percutaneous Approach (ICD-10-PCS; 2016-09-28)
PROC: 06CG3ZZ Extirpation of Matter from Left External Iliac Vein, Percutaneous Approach (ICD-10-PCS; 2016-09-28)
PROC: 06CF3ZZ Extirpation of Matter from Right External Iliac Vein, Percutaneous Approach (ICD-10-PCS; 2016-09-28)
PROC: 06CN3ZZ Extirpation of Matter from Left Femoral Vein, Percutaneous Approach (ICD-10-PCS; 2016-09-28)
PROC: 06CM3ZZ Extirpation of Matter from Right Femoral Vein, Percutaneous Approach (ICD-10-PCS; 2016-09-28)
PROC: 06CY3ZZ Extirpation of Matter from Lower Vein, Percutaneous Approach (ICD-10-PCS; 2016-09-28)
PROC: 067D3ZZ Dilation of Left Common Iliac Vein, Percutaneous Approach (ICD-10-PCS; 2016-09-28)
PROC: 067C3ZZ Dilation of Right Common Iliac Vein, Percutaneous Approach (ICD-10-PCS; 2016-09-28)
PROC: 047H3ZZ Dilation of Right External Iliac Artery, Percutaneous Approach (ICD-10-PCS; 2016-09-28)
PROC: 02PY33Z Removal of Infusion Device from Great Vessel, Percutaneous Approach (ICD-10-PCS; 2016-09-28)
PROC: 067N3ZZ Dilation of Left Femoral Vein, Percutaneous Approach (ICD-10-PCS; 2016-09-28)
PROC: 067M3ZZ Dilation of Right Femoral Vein, Percutaneous Approach (ICD-10-PCS; 2016-09-28)
PROC: 06H03DZ Insertion of Intraluminal Device into Inferior Vena Cava, Percutaneous Approach (ICD-10-PCS; 2016-09-28)
PROC: B31T1ZZ Fluoroscopy of Left Pulmonary Artery using Low Osmolar Contrast (ICD-10-PCS; 2016-09-28)
PROC: B31S1ZZ Fluoroscopy of Right Pulmonary Artery using Low Osmolar Contrast (ICD-10-PCS; 2016-09-28)
PROC: B51C1ZZ Fluoroscopy of Left Lower Extremity Veins using Low Osmolar Contrast (ICD-10-PCS; 2016-09-28)
PROC: B5191ZZ Fluoroscopy of Inferior Vena Cava using Low Osmolar Contrast (ICD-10-PCS; 2016-09-28)
PROC: 3E03317 Introduction of Other Thrombolytic into Peripheral Vein, Percutaneous Approach (ICD-10-PCS; 2016-09-28)
PROC: 3E04317 Introduction of Other Thrombolytic into Central Vein, Percutaneous Approach (ICD-10-PCS; 2016-09-28)
PROC: B543ZZA Ultrasonography of Right Jugular Veins, Guidance (ICD-10-PCS; 2016-09-28)
PROC: 4A033R1 Measurement of Arterial Saturation, Peripheral, Percutaneous Approach (ICD-10-PCS; 2016-09-29)
PROC: 30243N1 Transfusion of Nonautologous Red Blood Cells into Central Vein, Percutaneous Approach (ICD-10-PCS; 2016-09-30)
DX: I82.421 Acute embolism and thrombosis of right iliac vein (principal); I26.99 Other pulmonary embolism without acute cor pulmonale; J96.00 Acute respiratory failure, unspecified whether with hypoxia or hypercapnia; E03.9 Hypothyroidism, unspecified; D69.6 Thrombocytopenia, unspecified; D50.9 Iron deficiency anemia, unspecified; G47.30 Sleep apnea, unspecified; E66.01 Morbid (severe) obesity due to excess calories; Z68.45 Body mass index [BMI] 70 or greater, adult; Z86.718 Personal history of other venous thrombosis and embolism; Z91.011 Allergy to milk products; Z82.49 Family history of ischemic heart disease and other diseases of the circulatory system; Z83.3 Family history of diabetes mellitus
CPT/HCPCS: 36415; 36600; 37187; 37191; 37211; 37214; 37248; 37249; 71010; 71275; 75822; 76937; 80048; 80074; 82270; 82607; 82728; 82747; 82803; 83516; 83540; 83550; 83880; 84439; 84443; 84484; 84703; 85007; 85014; 85018; 85025; 85045; 85049; 85301; 85305; 85307; 85384; 85520; 85610; 85613; 85730; 86022; 86147; 86850; 86900; 86901; 86920; 93005; 93010; 93306; 93970; 94660; 94760; 96374; 96375; 96376; C1725; C1757; C1769; C1880; C1887; C1894; J0690; J1170; J1644; J2250; J2270; J2405; J2997; J3010; J7030; J7040; J7050; P9016; Q9967

== ENCOUNTER 2016-11-30 14:00 | Emergency (ER) | payer OTHER ==
[2016-11-30 14:39] VITALS: BP 151/89
--- NOTE | 2016-11-30 15:28 | XRay Report ---
RIGHT ANKLE, 3 views: History: Right ankle pain. Findings: There is diffuse soft tissue edema or pedal edema. No acute osseous abnormality or joint pathology is identified. The fifth metatarsal base is intact. Large plantar spur is noted. Impression: Soft tissue swelling or edema. Plantar spur.
[2016-11-30] MEDS ORDERED: MOTRIN PO ONE (19:35)
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
== END 2016-11-30 22:07 | disposition home or self-care (01) ==
LOC: ED 14:00
DX: S93.401A Sprain of unspecified ligament of right ankle, initial encounter (principal); S90.01XA Contusion of right ankle, initial encounter; V49.49XA Driver injured in collision with other motor vehicles in traffic accident, initial encounter; Y93.9 Activity, unspecified; Y92.9 Unspecified place or not applicable; Y99.9 Unspecified external cause status

== ENCOUNTER 2017-08-10 08:16 | Day surgery (SDC) | payer OTHER ==
[~2017-08-10 08:16] MED LIST: ANCEF/STERILE WATER 2 GM/20 ML 2 GM/20 ML SYRINGE IV NR; NACL 0.9% 1000 ML 1,000 ML IV SCH
[2017-08-10 09:29] LABS: Basophils % (Auto) 0.2 % (0.0-1.8); Eosinophils # (Auto) 0.1 K/mm3 (0.0-0.4); Eosinophils % (Auto) 2.7 % (0.0-4.3); Hematocrit 33.2 % (30.3-42.9); Hemoglobin 10.5 gm/dl (10.1-14.3); Lymphocytes # (Auto) 1.4 K/mm3 (1.2-5.4); Lymphocytes % (Auto) 28.8 % (13.4-35.0); Mean Corpuscular HGB Conc 32 % (30-34); Mean Corpuscular Hemoglobin 28 pg (28-32); Mean Corpuscular Volume 87 fl (79-97); Monocytes # (Auto) 0.3 K/mm3 (0.0-0.8); Monocytes % (Auto) 5.4 % (0.0-7.3); Platelet Count 262 K/mm3 (140-440); Red Blood Count 3.82 M/mm3 (3.65-5.03); Red Cell Distribution Width 19.6 % (13.2-15.2)
[2017-08-10 09:42] LABS: BUN/Creatinine Ratio 14; Blood Urea Nitrogen 10 mg/dL (7-17); Calcium 8.7 mg/dL (8.4-10.2); Hemolysis Index 0
[2017-08-10] MEDS ORDERED: SUBLIMAZE ONE ×3 (10:23→11:13)
[2017-08-10] MEDS ORDERED: HEPARIN/NS 5000 UNIT/500ML(CATH LAB) 1,000 ML IR ONE (10:23)
[2017-08-10] MEDS ORDERED: HEPARIN 10,000 UNITS/10 ML ONE (10:23)
[2017-08-10] MEDS ORDERED: XYLOCAINE 1%/ EPI 1:100,000 INFILTRATI ONE (10:23)
[2017-08-10] MEDS ORDERED: VERSED ONE ×3 (10:23→11:02)
[2017-08-10] MEDS ORDERED: ANCEF/STERILE WATER 2 GM/20 ML 2 GM/20 ML SYRINGE IV ONE (10:23)
[2017-08-10] MEDS: VERSED IV ONE ×6 (10:32→11:40)
[2017-08-10] MEDS ORDERED: XYLOCAINE/EPI 1% 1:50,000 (OR) INFILTRATI ONE ×2 (10:33→10:42)
[2017-08-10] MEDS ORDERED: SUBLIMAZE IV ONE ×2 (10:33→10:42)
[2017-08-10] MEDS ORDERED: HEPARIN 10,000 UNITS/10 ML 10,000 UNIT in NACL 0.9% 1000 ML 1,000 ML IR ONE (10:34)
[2017-08-10] MEDS ORDERED: HEPARIN 10,000 UNITS/10 ML 5,000 UNIT in NACL 0.9% 500 ML 500 ML IR ONE (10:34)
[2017-08-10] MEDS: SUBLIMAZE IV ONE ×5 (10:37→11:40)
[2017-08-10] MEDS ORDERED: VERSED IV ONE (10:42)
[2017-08-10] MEDS ORDERED: HEPARIN 10,000 UNITS/10 ML IV ONE (10:53)
--- NOTE | 2017-08-10 11:50 | Operative Report ---
Operative Report Operative Report: EXAM: 1. Ultrasound-guided access of the right internal jugular vein. 2. Selection of the right common femoral vein with venography of the right lower extremity. 3. Selection of the left common femoral vein with venography of the left lower extremity. 4. Selection of the IVC with venography of the IVC. 5. Complex IVC filter removal using loop snare technique. DATE: 08/10/17 DATA MODELING SPECIALIST: ROMAN BROWN MD INDICATION: 36-year-old female previously with extensive bilateral lower extremity iliofemoral DVT with submassive pulmonary embolism status post thrombolytic therapy with IVC filter placement. MEDICATIONS: Please see nursing report for full details. DEVICES: Tiffanie tulip retrieval kit 14 Angolan 30 cm sheath CONTRAST: Please see Lab report for details. PROCEDURE: The risks, benefits, and alternatives were discussed with the patient ; written informed consent was obtained. Ultrasound is used to evaluate the right neck which was patent. Under direct ultrasound guidance, the right internal jugular vein was accessed with a 21- gauge micropuncture needle. 0.018 wire was passed into the IVC. The needle was exchanged for a transitional dilator. Wire was exchanged for 0.035 inch wire. Transitional dilator was exchange for 5 Angolan sheath. The right common femoral vein was selected with a pigtail catheter and digital subtraction angiography was performed demonstrating patency of the right common femoral vein, external iliac vein, common iliac vein, and IVC. The left common iliac vein was selected with a pigtail catheter and digital subtraction angiography was performed demonstrating patency of the left common femoral vein , left external iliac vein, left common iliac vein, and IVC. The IVC was selected with a pigtail catheter and digital subtraction angiography was performed demonstrating no retained thrombus in the IVC filter with patency of the IVC. The sheath was then exchanged over an Amplatz wire for the Tiffanie tulip retrieval kit. I attempted to snare the hook of the IVC filter, but I was unable to snare it. After multiple attempts, I realized that the IVC filter was embedded in the posterior wall. This may be secondary to the patient's severe morbid obesity. I exchanged the sheath for 14 Angolan 30 cm sheath and then passed a omni-flush catheter underneath the filter and passed a Glidewire through the omni-flush catheter. I then snared the Glidewire creating a loop snare. I removed the omni-flush catheter and used the Tiffanie tulip retrieval sheaths and passed them coaxially over the loop snare. After multiple attempts, I was able to free up the IVC filter, and collapse into the retrieval sheath. IVC filter was removed. Omni flush catheter was then passed below the IVC filter and digital subtraction angiography was performed demonstrating no venous pseudoaneurysm, extravasation, and patency of the IVC. All wires, catheters, and sheath were then removed. Pressure was held until hemostasis was achieved. FINDINGS: Please see procedure note above. IMPRESSION: 1. Successful bilateral second-order venous selection of the right common femoral vein, and left common femoral vein with bilateral lower extremity venography, and selection of the IVC with venography. 2. Complex IVC filter removal using loop snare technique.
--- NOTE | 2017-08-10 11:50 | Short Stay Summary ---
Short Stay Documentation Date of service: 08/10/17 Narrative H&P: 36 year old female with indwelling IVC filter and no further need for therapy with prior bilateral ileofemoral DVT and submassive pulmonary embolism requiring thrombolytics. - History H&P: obtained from office - Allergies and Medications Current Medications: Allergies milk Allergy (Verified 11/30/16 14:37) Diarrhea Home Medications Medication Instructions Recorded Confirmed Last Taken Type Apixaban [Eliquis] 5 mg PO Q12HR #60 tablet 10/02/16 08/10/17 08/10/17 08:30 Rx 5mg Levothyroxine [Synthroid] 300 mcg PO DAILY@0600 08/10/17 08/10/17 08/09/17 07: 30 History 300mcg Active Medications Cefazolin Sodium (Ancef/Sterile Water 2 Gm/20 Ml) 2 gm in 20 mls @ 80 mls/hr IV PREOP NR; Protocol Stop: 08/10/17 23:59 Last Admin: 08/10/17 10:34 Dose: 20 mls Sodium Chloride (Nacl 0.9% 1000 Ml) 1,000 mls @ 42 mls/hr IV DIRECT RADHA Last Admin: 08/10/17 09:58 Dose: 42 mls/hr - Physical exam General appearance: no acute distress Lungs: Normal air movement - Brief post op/procedure progress note Date of procedure: 08/10/17 Pre-op diagnosis: history of DVT and PE with IVC filter Post-op diagnosis: same Procedure: bilateral lower extremity and IVC venography with selection Complex IVC filter removal with loop snare Anesthesia: local Surgeon: ROMAN BROWN Estimated blood loss: minimal Condition: stable - Hospital course Hospital course: Ready for discharge. 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
[2017-08-10 13:18] VITALS: BP 130/64
== END 2017-08-10 13:45 | disposition home or self-care (01) ==
LOC: CATHLABREC 08:16
PROVIDERS: ATTEND Radiology Diagnostic Radiology
DX: Z45.2 Encounter for adjustment and management of vascular access device (principal); Z86.718 Personal history of other venous thrombosis and embolism; Z79.01 Long term (current) use of anticoagulants; Z86.711 Personal history of pulmonary embolism; Z91.011 Allergy to milk products
CPT/HCPCS: 36415; 37193; 80048; 85025; 99156; 99157; C1751; C1769; C1773; C1887; J0690; J1644; J2250; J3010; J7030; J7040; Q9967

== ENCOUNTER 2018-05-08 20:40 | Emergency (ER) | payer OTHER ==
--- NOTE | 2018-05-08 21:33 | Emergency Department Report ---
ED General Adult HPI - General Chief complaint: Extremity Injury, Lower Stated complaint: L LEG PAIN/ POSS DVT Time Seen by Provider: 05/08/18 21:23 Source: patient, EMS Mode of arrival: Stretcher Limitations: Physical Limitation - History of Present Illness Initial comments: Patient is a 37-year-old female, morbidly obese, history of hypothyroidism, pu lmonary embolism and DVT. Patient is taking Elliquis 5 mg BID. Patient presented to the ER complaining of bilateral lower extremity swelling with erythema for 1 week and SOB. Patient denied any fever or chills. Patient initial oxygen saturation by EMS was 88% on room air improved to 98% on 2 L. Patient stated that she was told that she has obstructive sleep apnea but she is not using CPAP. Patient denied any chest pain but he stated that she's been having mild shortness of breath. - Related Data Home Medications Medication Instructions Recorded Confirmed Last Taken Levothyroxine [Synthroid] 300 mcg PO DAILY@0600 08/10/17 08/10/17 08/09/17 07:30 300mcg Previous Rx's Medication Instructions Recorded Last Taken Type Apixaban [Eliquis] 5 mg PO Q12HR #60 tablet 10/02/16 08/10/17 08:30 Rx 5mg HYDROcodone/APAP 5-325 [[place] 1 each PO Q6HR PRN #20 tablet 08/10/17 Unknown Rx 5/325] Furosemide [Lasix] 20 mg PO QDAY #7 tablet 05/09/18 Unknown Rx Potassium Chloride [K-Dur] 10 meq PO QDAY #7 tablet 05/09/18 Unknown Rx cephALEXin [Keflex] 500 mg PO Q8HR #28 cap 05/09/18 Unknown Rx Allergies Allergy/AdvReac Type Severity Reaction Status Date / Time milk Allergy Diarrhea Verified 11/30/16 14:37 ED Review of Systems ROS: Stated complaint: L LEG PAIN/ POSS DVT Other details as noted in HPI Comment: All other systems reviewed and negative Constitutional: denies: chills, fever Respiratory: shortness of breath. denies: cough, orthopnea, SOB with exertion, SOB at rest, wheezing Cardiovascular: denies: chest pain, palpitations Gastrointestinal: denies: abdominal pain, nausea, vomiting, diarrhea, constipation, hematemesis Musculoskeletal: denies: back pain Neurological: denies: headache, weakness, numbness, paresthesias, confusion ED Past Medical Hx - Past Medical History Previous Medical History?: Yes Hx Congestive Heart Failure: No Hx Diabetes: No Hx Deep Vein Thrombosis: Yes (IVC Filter) Hx Pulmonary Embolism: Yes (09/27/2016-bilat) Hx Asthma: No Hx COPD: No Additional medical history: hypothyroidism - Surgical History Past Surgical History?: Yes Additional Surgical History: x2 - Social History Smoking Status: Never Smoker Substance Use Type: None - Medications Home Medications: Home Medications Medication Instructions Recorded Confirmed Last Taken Type Apixaban [Eliquis] 5 mg PO Q12HR #60 tablet 10/02/16 08/10/17 08/10/17 08:30 Rx 5mg HYDROcodone/APAP 5-325 [[place] 1 each PO Q6HR PRN #20 tablet 08/10/17 Unknown Rx 5/325] Levothyroxine [Synthroid] 300 mcg PO DAILY@0600 08/10/17 08/10/17 08/09/17 07:30 History 300mcg Furosemide [Lasix] 20 mg PO QDAY #7 tablet 05/09/18 Unknown Rx Potassium Chloride [K-Dur] 10 meq PO QDAY #7 tablet 05/09/18 Unknown Rx cephALEXin [Keflex] 500 mg PO Q8HR #28 cap 05/09/18 Unknown Rx ED Physical Exam - General Limitations: Physical Limitation General appearance: alert, in no apparent distress - Head Head exam: Present: atraumatic, normocephalic, normal inspection - Eye Eye exam: Present: normal appearance - ENT ENT exam: Present: normal exam, normal orophraynx, mucous membranes moist - Neck Neck exam: Present: normal inspection, full ROM. Absent: tenderness, meningismus, lymphadenopathy, thyromegaly - Respiratory Respiratory exam: Present: normal lung sounds bilaterally. Absent: respiratory distress, wheezes, rales, rhonchi, accessory muscle use, decreased breath sounds, prolonged expiratory - Cardiovascular Cardiovascular Exam: Present: regular rate, normal rhythm, normal heart sounds - GI/Abdominal GI/Abdominal exam: Present: soft, normal bowel sounds. Absent: distended, tenderness, guarding, rebound, rigid - Extremities Exam Extremities exam: Present: full ROM, normal capillary refill, pedal edema, other (bilateral lower extremity erythema, no warmness or tenderness). Absent: tenderness - Back Exam Back exam: Present: normal inspection, full ROM. Absent: tenderness, CVA tenderness (R), CVA tenderness (L) - Neurological Exam Neurological exam: Present: alert, oriented X3, CN II-XII intact - Psychiatric Psychiatric exam: Present: normal mood - Skin Skin exam: Present: warm, intact, erythema ED Course Vital Signs 05/08/18 05/08/18 05/08/18 20:55 21:10 22:01 Temperature 98 F Pulse Rate 80 76 Respiratory 19 17 Rate Blood Pressure 142/76 134/58 Blood Pressure 142/76 [Right] O2 Sat by Pulse 98 92 100 Oximetry 05/09/18 05/09/18 02:29 04:11 Temperature 97.6 F Pulse Rate 83 81 Respiratory 11 L 12 Rate Blood Pressure 120/46 Blood Pressure 140/69 [Right] O2 Sat by Pulse 95 100 Oximetry - Reevaluation(s) Reevaluation #1: 05/09/18 01:46 I tried multiple hospitals for possible transfer to bariatric's units. Patient weight is 517 pounds above follow her CT scanner and I were NG machine also. I discussed with Joon, [facility] and [place]. Dr. Blanco from [place] [facility] accepted the patient to be sent to have a CT angiogram and return back to [facility]. ED Medical Decision Making - Lab Data Result diagrams: 05/08/18 21:51 05/08/18 21:51 - Radiology Data Radiology results: report reviewed - Medical Decision Making Patient is a 37-year-old female, morbidly obese, history of hypothyroidism, pulmonary embolism and DVT. Patient is taking Elliquis 5 mg BID. Patient presented to the ER complaining of bilateral lower extremity swelling with erythema for 1 week and SOB. Patient denied any fever or chills. Patient initial oxygen saturation by EMS was 88% on room air improved to 98% on 2 L. Patient stated that she was told that she has obstructive sleep apnea but she is not using CPAP. Patient denied any chest pain but he stated that she's been having mild shortness of breath. Patient had a CTA chest done at [facility]. I receive a call from Dr. Blanco from the ER stating that her CTA chest is negative for pulmonary embolism and no other acute abnormalities. Patient will be discharged home to follow-up with her primary care physician in the next 2-3 days. I thoroughly discussed with the patient obstructive sleep apnea and the need to follow up with her primary care physician for possible CPAP machine. Patient noticed to have her oxygen saturation dropped to the 80s when she sleep and a soreness you wake up her oxygen saturation go to the 90s. Critical Care Time: Yes Critical care time in (mins) excluding proc time.: 45 Critical care attestation.: If time is entered above; I have spent that time in minutes in the direct care of this critically ill patient, excluding procedure time. ED Disposition Clinical Impression: Shortness of breath, Bilateral lower leg cellulitis Disposition: - TO HOME OR SELFCARE Is pt being admited?: No Condition: Stable Instructions: Cellulitis (ED), Lymphedema (ED) Prescriptions: cephALEXin [Keflex] 500 mg PO Q8HR #28 cap Furosemide [Lasix] 20 mg PO QDAY #7 tablet Potassium Chloride [K-Dur] 10 meq PO QDAY #7 tablet Referrals: PRIMARY CARE, [Primary Care Provider] - 3-5 Days
[2018-05-08 22:14] LABS: Basophils % (Auto) 0.7 % (0.0-1.8); Eosinophils # (Auto) 0.1 K/mm3 (0.0-0.4); Eosinophils % (Auto) 1.4 % (0.0-4.3); Hematocrit 27.3 % (30.3-42.9); Hemoglobin 9.1 gm/dl (10.1-14.3); Lymphocytes % (Auto) 21.5 % (13.4-35.0); Mean Corpuscular HGB Conc 33 % (30-34); Mean Corpuscular Volume 96 fl (79-97); Monocytes # (Auto) 0.2 K/mm3 (0.0-0.8); Monocytes % (Auto) 4.1 % (0.0-7.3); Platelet Count 206 K/mm3 (140-440); Red Blood Count 2.85 M/mm3 (3.65-5.03)
[2018-05-08 22:15] LABS: Red Cell Distribution Width 23.4 % (13.2-15.2)
[2018-05-08 22:23] LABS: Partial Thromboplastin Time 24.1 Sec. (24.2-36.6)
[2018-05-08 22:31] LABS: Calcium 8.8 mg/dL (8.4-10.2)
[2018-05-08 22:33] LABS: Alanine Aminotransferase 20 units/L (7-56); Albumin 3.8 g/dL (3.9-5)
--- NOTE | 2018-05-08 22:37 | XRay Report ---
FINAL REPORT PROCEDURE: Chest. TECHNIQUE: Chest radiograph anteroposterior view. CPT 17373 HISTORY: Dyspnea. COMPARISON: No prior studies are available for comparison. FINDINGS: The radiograph is underpenetrated. The heart size is moderately enlarged. The lungs are clear and wel l expanded. There are no pleural effusions. The soft tissues and regional skeleton are unremarkable. IMPRESSION: Cardiomegaly.
[2018-05-08 22:41] LABS: Bilirubin,Direct < 0.2 mg/dL (0-0.2)
[2018-05-08] MEDS ORDERED: LOVENOX SUB-Q ONE (23:35)
[2018-05-09 01:06] LABS: HCG Qualitative,Urine Negative (Negative)
[2018-05-09 06:42] VITALS: BP 150/73
== END 2018-05-09 06:10 | disposition home or self-care (01) ==
LOC: ED 20:40
DX: L03.116 Cellulitis of left lower limb (principal); L03.115 Cellulitis of right lower limb; R06.02 Shortness of breath; E03.9 Hypothyroidism, unspecified; Z86.718 Personal history of other venous thrombosis and embolism; Z86.711 Personal history of pulmonary embolism
CPT/HCPCS: 36415; 71045; 80048; 80076; 81025; 83880; 84484; 85025; 85379; 85610; 85730; 93005; 93010; 96372; 99291; J1650